=== PATIENT | female | born 1975 | race Caucasian/White ===

== ENCOUNTER 2017-03-05 17:47 | Emergency (ER) | payer MEDICAID ==
[~2017-03-05] VITALS: Ht 154.9 cm; Wt 109.0 kg
[~2017-03-05 17:47] MED LIST: ZOFR4TAB3 SL
[2017-03-05 17:48] VITALS: BP 129/59; PULSE 81; RESP 16; TEMP 98.5; O2SAT 98
[2017-03-05] MEDS ORDERED: TYLETAB34 PO (18:31)
[2017-03-05] MEDS ORDERED: METR-1 PO (18:31)
--- NOTE | 2017-03-05 18:36 | PD ---
HPI Chief Complaint: Oral / Dental Pain or Problem Time Seen by Provider: 18:25 Travel History International Travel<30 days: No Contact w/Intl Traveler<30days: No Traveled to known affect area: No History of Present Illness HPI This patient complains of dental pain. She is worried about infection there. Denies fever. She's been told she will need a root canal there. Symptoms severity is moderate PFSH Past Medical History Anemia: No Arthritis: No Asthma: Yes Autoimmune Disease: No Blood Disorders: No Anxiety: No Depression: Yes Heart Rhythm Problems: No Cancer: No Cardiovascular Problems: No High Cholesterol: No Chemotherapy: No Chest Pain: No Congestive Heart Failure: No COPD: Yes Cerebrovascular Accident: No Diminished Hearing: No Endocrine: No Gastrointestinal Disorders: Yes GERD: Yes Glaucoma: No Genitourinary: Yes Headaches: Yes Hepatitis: No Hiatal Hernia: No Hypertension: No Immune Disorder: No Implanted Vascular Access Dvce: No Kidney Stones: No Musculoskeletal: Yes (RT. HAND/WRIST PAIN NERVE PAIN; CARPAL TUNNEL RT. WRIST/ HAND) Neurologic: Yes Psychiatric: Yes Reproductive: No Respiratory: Yes (pneumonia) Immunizations Current: Yes Migraines: No Myocardial Infarction: No Radiation Therapy: No Renal Failure: No Seizures: No Sickle Cell Disease: No Thyroid Disease: No Ulcer: No Tetanus Vaccination: Unknown Influenza Vaccination: No ?: Not LMP: 2 WEEKS Menopausal: No : 3 Para: 2 Miscarriage: 1 Dilation and Curettage (D&C): Yes Tubal Ligation: Yes Past Surgical History Abdominal Surgery: Yes ( INFECTION REMOVED AROUND SPLEEN) AICD: No Appendectomy: No Arteriovenous Shunt: No Cardiac Surgery: No Section: Yes (X 2) Cholecystectomy: Yes Ear Surgery: No Endocrine Surgery: No Eye Surgery: No Genitourinary Surgery: No Gynecologic Surgery: Yes (TUBAL LIGATION; D/C; X2) Insulin Pump: No Joint Replacement: No Neurologic Surgery: No Oral Surgery: Yes (TONSILLECTOMY) Pacemaker: No Tonsillectomy: Yes Other Surgery: Yes (TRACH AND REVERSAL) Family History Family Myocardial Infarction: Yes (GRANDMOTHER) Social History Alcohol Use: Yes (RARE) Tobacco Use: Yes (VAPOR) Substance Use: No Allergies-Medications (Allergen,Severity, Reaction): Coded Allergies: Seafood (Verified Allergy, Severe, Anaphylaxis, 03/05/17) Penicillin (Verified Allergy, Unknown, 03/05/17) CHILDHOOD ALLERGY Cleocin (Verified Adverse Reaction, Severe, RASH, 03/05/17) Reported Meds & Prescriptions Reported Meds & Active Scripts Active Flagyl (Metronidazole) 500 Mg Tab 500 Mg PO TID Tylenol-Codeine #3 (Acetaminophen-Codeine) 300-30 mg Tab 1 Tab PO Q6HR PRN Review of Systems General / Constitutional: No: Fever HENT: No: Headaches Cardiovascular: No: Chest Pain or Discomfort Physical Exam Narrative NECK: Symmetrical appearance, midline trachea. No mass or crepitus. Thyroid without enlargement, tenderness, or mass. Throat clear TMs normal SKIN: Focused skin assessment reveals no rash or ulcers. Skin is warm and dry. Palpation shows no induration or nodules. Oral cavity: Poor dentition. The last left upper molar is almost completely rotted out. [place] gingiva noted without abscess Data Data Last Documented VS Vital Signs Date Time Temp Pulse Resp B/P Pulse Ox O2 Delivery O2 Flow Rate FiO2 03/05/17 17:48 98.5 81 16 129/59 98 MDM Medical Decision Making Medical Screen Exam Complete: Yes Emergency Medical Condition: Yes Medical Record Reviewed: Yes Differential Diagnosis Dental pain, dental cavity, abscess Narrative Course I have reviewed the patient's electronic medical record. I wrote the patient prescription for Tylenol 3 for pain relief and some Flagyl given her allergies Recommend dental follow-up Diagnosis Primary Impression: Pain, dental Additional Instructions: The patient was advised to follow up with their dental provider . The patient was warned about potential sedation for the medications they will receive on prescription. Med/Other Pt SpecificInfo: Prescription(s) given Scripts Metronidazole (Flagyl)500 Mg Urj079 Mg PO TID #20 TAB Ref 0 Prov:Jagdish Díaz MD 03/05/17 Acetaminophen-Codeine (Tylenol-Codeine #3)300-30 mg Tab1 Tab PO Q6HR PRN (PAIN) #15 TAB Ref 0 Prov:Jagdish Díaz MD 03/05/17 Disposition: 01 DISCHARGE HOME Condition: Stable Jagdish Díaz MD Mar 05, 2017 18:36
== END 2017-03-05 18:55 | disposition home or self-care (01) ==
LOC: PHEFT 17:47
DX: K08.89 Other specified disorders of teeth and supporting structures (principal); Z72.0 Tobacco use; Z87.09 Personal history of other diseases of the respiratory system; Z86.59 Personal history of other mental and behavioral disorders; Z87.19 Personal history of other diseases of the digestive system; Z87.448 Personal history of other diseases of urinary system; Z87.39 Personal history of other diseases of the musculoskeletal system and connective tissue; Z86.69 Personal history of other diseases of the nervous system and sense organs
CPT/HCPCS: 99284

== ENCOUNTER 2017-05-02 19:54 | Emergency (ER) | payer SELFPAY ==
[~2017-05-02] VITALS: Ht 154.9 cm; Wt 110.0 kg
[~2017-05-02 19:54] MED LIST changes: +METR-1 PO; +TYLETAB34 PO; -ZOFR4TAB3 SL
[2017-05-02 20:42] VITALS: BP 106/68; PULSE 85; RESP 16; TEMP 99; O2SAT 99
--- NOTE | 2017-05-02 21:00 | PD ---
HPI . Cough, bilateral ear pain, throat pain 3 weeks Chief Complaint: Cold / Flu Symptoms Time Seen by Provider: 20:47 Travel History International Travel<30 days: No Contact w/Intl Traveler<30days: No Traveled to known affect area: No History of Present Illness HPI 41-year-old female presents to the emergency department for evaluation of cough , throat pain and bilateral ear pain 3 weeks. Patient states she is unsure she has had a fever however she has chills or malaise. Patient denies any abdominal pain, nausea at this time but states she vomited once earlier today. Patient denies any major medical history except for a gastric bypass surgery that became so infected she develops sepsis. Patient states she is taking Tylenol and Motrin for pain and fever. Patient states when she coughs she coughs up a dorsey colored phlegm. PFSH Past Medical History Anemia: No Arthritis: No Asthma: Yes Autoimmune Disease: No Blood Disorders: No Anxiety: No Depression: Yes Heart Rhythm Problems: No Cancer: No Cardiovascular Problems: No High Cholesterol: No Chemotherapy: No Chest Pain: No Congestive Heart Failure: No COPD: Yes Cerebrovascular Accident: No Diminished Hearing: No Endocrine: No Gastrointestinal Disorders: Yes GERD: Yes Glaucoma: No Genitourinary: Yes Headaches: Yes Hepatitis: No Hiatal Hernia: No Hypertension: No Immune Disorder: No Implanted Vascular Access Dvce: No Kidney Stones: No Musculoskeletal: Yes (RT. HAND/WRIST PAIN NERVE PAIN; CARPAL TUNNEL RT. WRIST/ HAND) Neurologic: Yes Psychiatric: Yes Reproductive: No Respiratory: Yes (pneumonia) Immunizations Current: Yes Migraines: No Myocardial Infarction: No Radiation Therapy: No Renal Failure: No Seizures: No Sickle Cell Disease: No Thyroid Disease: No Ulcer: No Menopausal: No : 3 Para: 2 Miscarriage: 1 Dilation and Curettage (D&C): Yes Tubal Ligation: Yes Past Surgical History Abdominal Surgery: Yes ( INFECTION REMOVED AROUND SPLEEN) AICD: No Appendectomy: No Arteriovenous Shunt: No Cardiac Surgery: No Section: Yes (X 2) Cholecystectomy: Yes Ear Surgery: No Endocrine Surgery: No Eye Surgery: No Genitourinary Surgery: No Gynecologic Surgery: Yes (TUBAL LIGATION; D/C; X2) Insulin Pump: No Joint Replacement: No Neurologic Surgery: No Oral Surgery: Yes (TONSILLECTOMY) Pacemaker: No Tonsillectomy: Yes Other Surgery: Yes (TRACH AND REVERSAL) Social History Alcohol Use: Yes (RARE) Tobacco Use: Yes (VAPOR) Substance Use: No Allergies-Medications (Allergen,Severity, Reaction): Coded Allergies: Fish Containing Products (Unverified Allergy, Severe, Anaphylaxis, ) penicillin G (Unverified Allergy, Unknown, 05/02/17) CHILDHOOD ALLERGY clindamycin (Unverified Adverse Reaction, Severe, RASH, 05/02/17) Reported Meds & Prescriptions Reported Meds & Active Scripts Active Ibuprofen 400 Mg Tab 400 Mg PO Q6H PRN Flagyl (Metronidazole) 500 Mg Tab 500 Mg PO TID Tylenol-Codeine #3 (Acetaminophen-Codeine) 300-30 mg Tab 1 Tab PO Q6HR PRN Review of Systems Except as stated in HPI: all other systems reviewed are Neg Physical Exam Narrative GENERAL: Well-nourished, well-developed 41-year-old female patient in no acute distress. Nontoxic appearing. SKIN: Focused skin assessment warm/dry. HEAD: Normocephalic. Atraumatic. EYES: No scleral icterus. No injection or drainage. ENT: Mucosa pink and moist. No erythema or exudates. No uvular edema. No uvular , palatal, or tonsillar deviation. Airway patent. Nasal turbinates appear normal without nasal blood, purulent drainage or septal hematoma. EARS: Bilateral pinnae and external canals appear within normal limits. Bilateral tympanic membranes without erythema, dullness or perforation. NECK: Supple, trachea midline. No JVD or lymphadenopathy. CARDIOVASCULAR: Regular rate and rhythm without murmurs, gallops, or rubs. RESPIRATORY: Breath sounds equal bilaterally. No accessory muscle use. GASTROINTESTINAL: Abdomen soft, non-tender, nondistended. MUSCULOSKELETAL: No cyanosis, or edema. BACK: Nontender without obvious deformity. No CVA tenderness. Data Data Last Documented VS Vital Signs Date Time Temp Pulse Resp B/P (MAP) Pulse Ox O2 Delivery O2 Flow Rate FiO2 05/02/17 21:54 05/02/17 21:00 Room Air 05/02/17 20:42 99.0 85 16 99 Orders Orders Chest, Single Ap (05/02/17 20:54) Ed Discharge Order (05/02/17 21:45) MDM Medical Decision Making Medical Screen Exam Complete: Yes Emergency Medical Condition: Yes Differential Diagnosis Differential diagnoses include but not limited to viral syndrome, URI, pharyngitis Narrative Course 41-year-old female presents emergency department for evaluation of cough, ear pain and throat pain 3 weeks. Patient denies any major medical history except for previous gastric bypass surgery where she developed sepsis. Patient states this pain has been persistent despite alternating Tylenol and Motrin around-the- clock. Patient is unsure if she has had any fevers but confirms chills or malaise. Patient states she has coughing up dorsey phlegm. Chest x-ray ordered and pending. Chest x-ray was negative for any acute findings. Based on patient 's symptoms, clinical presentation, radiological results, vital sign review and physical exam it is not necessary to admit the patient to the hospital or keep the patient in the emergency department for further evaluation. Patient will be discharged home. Diagnosis Primary Impression: Viral syndrome Patient Instructions: General Instructions, Viral Syndrome (ED) Additional Instructions: Please return to emergency department if your symptoms return or worsen. Follow up with your primary care provider. Disposition: 01 DISCHARGE HOME Condition: Stable Roopa Cueto May 02, 2017 21:00
--- NOTE | 2017-05-02 21:31 | RADRPT ---
EXAM DATE/TIME: 05/02/2017 21:13 [facility] COMPARISON: CHEST SINGLE AP, November 24, 2015, 12:15. INDICATIONS : Cough and congestion for 3 weeks. MEDICAL HISTORY : None. SURGICAL HISTORY : Hysterectomy. Cholecystectomy. section.Tubal ligation. Gastric bypass. ENCOUNTER: Initial ACUITY: 3 weeks PAIN SCORE: 0/10 LOCATION: Bilateral chest FINDINGS: A single view of the chest demonstrates the lungs to be symmetrically aerated without evidence of mas s, infiltrate or effusion. The cardiomediastinal contours are unremarkable. Osseous structures are intact. CONCLUSION: No acute disease. No significant change has occurred. Gonzalo Shook MD on May 02, 2017 at 21:29 Board Certified Radiologist. This report was verified electronically.
[2017-05-02] MEDS ORDERED: IBUP400T20 PO (21:44)
== END 2017-05-02 22:05 | disposition home or self-care (01) ==
LOC: PHEFT 19:54
DX: B34.9 Viral infection, unspecified (principal); F32.9 Major depressive disorder, single episode, unspecified; J44.9 Chronic obstructive pulmonary disease, unspecified; K21.9 Gastro-esophageal reflux disease without esophagitis; F17.200 Nicotine dependence, unspecified, uncomplicated; Z88.0 Allergy status to penicillin
CPT/HCPCS: 71010; 99283

== ENCOUNTER 2017-08-01 17:18 | Emergency (ER) | payer MEDICAID ==
[~2017-08-01] VITALS: Ht 154.9 cm; Wt 110.7 kg
[2017-08-01] VITALS (7 sets, daily range): BP systolic 91–133; BP diastolic 50–64; PULSE 72–84; RESP 16–20; TEMP 97.8–98.7; O2SAT 97–99
[2017-08-01 17:53] LABS: BILIRUBIN, URINE NEG (NEG); BLOOD, URINE NEG (NEG); GLUCOSE,URINE NEG (NEG); KETONE, URINE TRACE mg/dL (NEG); NITRITE,URINE NEG (NEG); PH, URINE 5.5 (5.0-8.5); URINE LEUKOCYTE ESTERASE NEG (NEG)
[2017-08-01 18:06] LABS: RBC, URINE 0-3 /hpf (0-3); SQUAMOUS EPITHELIAL CELL URINE 0-5 /hpf (0-5); URINE COLOR YELLOW (YELLW/STRAW); WBC, URINE 0-2 /hpf (0-5)
[2017-08-01] MEDS ORDERED: SODIUM CHLORIDE 0.9% FLUSH 10 ML FLUSH IV FLUSH PRN (19:00)
--- NOTE | 2017-08-01 19:08 | PD ---
HPI Chief Complaint: Flank/Kidney Pain Time Seen by Provider: 18:21 Travel History International Travel<30 days: No Contact w/Intl Traveler<30days: No Traveled to known affect area: No History of Present Illness HPI 41-year-old female with history of kidney stones, gastric bypass surgery in 2011 in [facility], here for evaluation of right flank pain. Patient reports that the symptoms started yesterday. She describes burning sensation in her right flank that radiates around to her right groin. Pain is occasionally sharp/shooting, currently 7 out of 10, sometimes 8 out of 10, constant, associated with nausea but no vomiting. The patient also reports some was bowel movements. She has had a cholecystectomy. No fevers or chills. Last [place]. Was a week ago. No vaginal bleeding or discharge. PFSH Past Medical History Anemia: No Arthritis: No Asthma: Yes Autoimmune Disease: No Blood Disorders: No Anxiety: No Depression: Yes Heart Rhythm Problems: No Cancer: No Cardiovascular Problems: No High Cholesterol: No Chemotherapy: No Chest Pain: No Congestive Heart Failure: No COPD: Yes Cerebrovascular Accident: No Diminished Hearing: No Endocrine: No Gastrointestinal Disorders: Yes GERD: Yes Glaucoma: No Genitourinary: Yes Headaches: Yes Hepatitis: No Hiatal Hernia: No Hypertension: No Immune Disorder: No Implanted Vascular Access Dvce: No Kidney Stones: No Musculoskeletal: Yes (RT. HAND/WRIST PAIN NERVE PAIN; CARPAL TUNNEL RT. WRIST/ HAND) Neurologic: Yes Psychiatric: Yes Reproductive: No Respiratory: Yes (pneumonia) Immunizations Current: Yes Migraines: No Myocardial Infarction: No Radiation Therapy: No Renal Failure: No Seizures: No Sickle Cell Disease: No Thyroid Disease: No Ulcer: No ?: Not LMP: TUBAL Menopausal: No : 3 Para: 2 Miscarriage: 1 Dilation and Curettage (D&C): Yes Tubal Ligation: Yes Past Surgical History Abdominal Surgery: Yes ( INFECTION REMOVED AROUND SPLEEN) AICD: No Appendectomy: No Arteriovenous Shunt: No Cardiac Surgery: No Section: Yes (X 2) Cholecystectomy: Yes Ear Surgery: No Endocrine Surgery: No Eye Surgery: No Genitourinary Surgery: No Gynecologic Surgery: Yes (TUBAL LIGATION; D/C; X2) Insulin Pump: No Joint Replacement: No Neurologic Surgery: No Oral Surgery: Yes (TONSILLECTOMY) Pacemaker: No Tonsillectomy: Yes Other Surgery: Yes (TRACH AND REVERSAL) Family History Family Myocardial Infarction: Yes (GRANDMOTHER) Social History Alcohol Use: Yes (RARE) Tobacco Use: Yes (VAPOR) Substance Use: No Allergies-Medications (Allergen,Severity, Reaction): Coded Allergies: Fish Containing Products (Unverified Allergy, Severe, Anaphylaxis, 08/01/17) penicillin G (Unverified Allergy, Unknown, CHILDHOOD ALLERGY, 08/01/17) clindamycin (Unverified Adverse Reaction, Severe, RASH, 08/01/17) Reported Meds & Prescriptions Reported Meds & Active Scripts Active No Active Prescriptions or Reported Medications Review of Systems Except as stated in HPI: all other systems reviewed are Neg Physical Exam Narrative GENERAL: Well-developed, well-nourished, overweight, no apparent distress. SKIN: Focused skin assessment warm/dry. No rashes. HEAD: Atraumatic. Normocephalic. EYES: Pupils equal and round. No scleral icterus. No injection or drainage. ENT: Mucous membranes pink and moist. NECK: Trachea midline. No JVD. CARDIOVASCULAR: Regular rate and rhythm. No murmur appreciated. RESPIRATORY: No accessory muscle use. Clear to auscultation. Breath sounds equal bilaterally. GASTROINTESTINAL: Abdomen soft, non-tender, nondistended. Normal bowel sounds. MUSCULOSKELETAL: No obvious deformities. No clubbing. No cyanosis. No edema. No CVA tenderness. No midline vertebral step-off or tenderness. NEUROLOGICAL: Awake and alert. No obvious cranial nerve deficits. Motor grossly within normal limits. Normal speech. PSYCHIATRIC: Appropriate mood and affect; insight and judgment normal. Data Data Last Documented VS Vital Signs Date Time Temp Pulse Resp B/P (MAP) Pulse Ox O2 Delivery O2 Flow Rate FiO2 08/01/17 22:16 82 16 117/62 (80) 98 Room Air 08/01/17 17:19 98.7 Orders Orders Urinalysis - C+S If Indicated (08/01/17 17:27) Ed Urine Pregnancytest Poc (08/01/17 17:27) Complete Blood Count With Diff (08/01/17 18:48) Comprehensive Metabolic Panel (08/01/17 18:48) Lipase (08/01/17 18:48) Prothrombin Time / Inr (Pt) (08/01/17 18:48) Act Partial Throm Time (Ptt) (08/01/17 18:48) Ct Abd/Pel W Iv Contrast(Rout) (08/01/17 18:48) Iv Access Insert/Monitor (08/01/17 18:48) Ecg Monitoring (08/01/17 18:48) Oximetry (08/01/17 18:48) Sodium Chloride 0.9% Flush (Ns Flush) (08/01/17 19:00) Ondansetron Inj (Zofran Inj) (08/01/17 19:30) Iohexol 350 Inj (Omnipaque 350 Inj) (08/01/17 20:11) Morphine Inj (Morphine Inj) (08/01/17 21:00) Sodium Chlor 0.9% 1000 Ml Inj (Ns 1000 M (08/01/17 21:45) Labs Laboratory Tests Test 08/01/17 17:45 08/01/17 19:08 Urine Collection Type CLEAN CATCH Urine Color YELLOW Urine Turbidity CLEAR Urine pH 5.5 Urine Specific [place] 1.024 Urine Protein NEG mg/dL Urine Glucose (UA) NEG mg/dL Urine Ketones TRACE mg/dL Urine Occult Blood NEG Urine Nitrite NEG Urine Bilirubin NEG Urine Leukocyte Esterase NEG Urine RBC 0-3 /hpf Urine WBC 0-2 /hpf Urine Squamous Epithelial Cells 0-5 /hpf Microscopic Urinalysis Comment CULT NOT INDICATED Urine Collection Time 17:45 White Blood Count 6.9 TH/MM3 Red Blood Count 4.19 MIL/MM3 Hemoglobin 11.1 GM/DL Hematocrit 35.1 % Mean Corpuscular Volume 83.9 FL Mean Corpuscular Hemoglobin 26.6 PG Mean Corpuscular Hemoglobin Concent 31.7 % Red Cell Distribution Width 14.8 % Platelet Count 296 TH/MM3 Mean Platelet Volume 8.6 FL Neutrophils (%) (Auto) 66.3 % Lymphocytes (%) (Auto) 25.3 % Monocytes (%) (Auto) 6.6 % Eosinophils (%) (Auto) 1.3 % Basophils (%) (Auto) 0.5 % Neutrophils # (Auto) 4.6 TH/MM3 Lymphocytes # (Auto) 1.7 TH/MM3 Monocytes # (Auto) 0.5 TH/MM3 Eosinophils # (Auto) 0.1 TH/MM3 Basophils # (Auto) 0.0 TH/MM3 CBC Comment DIFF FINAL Differential Comment Prothrombin Time 10.2 SEC Prothromb Time International Ratio 1.0 RATIO Activated Partial Thromboplast Time 25.0 SEC Blood Urea Nitrogen 12 MG/DL Creatinine 0.84 MG/DL Random Glucose 100 MG/DL Total Protein 7.2 GM/DL Albumin 3.3 GM/DL Calcium Level 8.9 MG/DL Alkaline Phosphatase 127 U/L Aspartate Amino Transf (AST/SGOT) 70 U/L Alanine Aminotransferase (ALT/SGPT) 58 U/L Total Bilirubin 0.2 MG/DL Sodium Level 141 MEQ/L Potassium Level 4.0 MEQ/L Chloride Level 106 MEQ/L Carbon Dioxide Level 28.9 MEQ/L Anion Gap 6 MEQ/L Estimat Glomerular Filtration Rate 75 ML/MIN Lipase 103 U/L [facility] Medical Decision Making Medical Screen Exam Complete: Yes Emergency Medical Condition: Yes Medical Record Reviewed: Yes Differential Diagnosis Nephrolithiasis, ureterolithiasis, pyelonephritis, UTI, cystitis, musculoskeletal pain, hepatobiliary disease, choledocholithiasis, cholangitis Narrative Course Vital signs show heart rate 84, blood pressure 133/64, pulse ox 99% on room air , oral temp of 98.7F. CBC: WBC 6.9, hemoglobin 11.1, hematocrit 35.1, platelets 295. CMP is remarkable for AST 70, ALT 58, alkaline phosphatase 127, otherwise unremarkable. UA shows trace ketones, otherwise unremarkable, no hematuria, no signs of infection. CT abdomen pelvis: CONCLUSION: 1. No acute abnormality. 2. Previously seen left renal stone no longer present. 3. Cholecystectomy and gastric bypass changes are again noted. Patient was made aware of all findings. She had moderate relief of pain after morphine, however she continues to have right flank pain. I told her I would like to admit her for further pain control as well as evaluation by our bariatric surgeons for possible internal hernia or other cause for her pain that may be related to her gastric bypass. The patient tells me that she does not wish to be admitted at this time. I will give her the information to our bariatric surgeons whom she should follow-up with this week. She understands the risks of being discharged at this time. She was informed on when to return to the emergency department. She verbalizes understanding and agreement with plan. Diagnosis Primary Impression: Right flank pain Referrals: You Murray MD 3 days Bariatric surgeon Harley Chahal MD 3 days Bariatric surgeon [facility] 3 days Primary Care Physician 3 days Additional Instructions: Follow-up with bariatric surgeon Dr. Mccann or Dr. Murray this week. Follow-up with a primary care physician this week. Return to the emergency department for worsening symptoms or any other concerns. Scripts Hydrocodone-Acetaminophen (Hydrocodone-Acetaminophen) 5-325 mg Tab 1 TAB PO Q6H Y for PAIN, #12 TAB 0 Refills Prov: Chap[place]ito Cheung MD 08/01/17 Disposition: 01 DISCHARGE HOME Condition: Stable Chapincito Cheung MD Aug 01, 2017 19:08
[2017-08-01 19:19] LABS: AUTOMATED NEUTROPHIL # 4.6 TH/MM3 (1.8-7.7); BASOPHIL % 0.5 % (0.0-2.0); EOSINOPHIL # 0.1 TH/MM3 (0-0.4); EOSINOPHIL % 1.3 % (0.0-4.0); HEMATOCRIT 35.1 % (35.0-46.0); HEMOGLOBIN 11.1 GM/DL (11.6-15.3); LYMPH % 25.3 % (9.0-44.0); LYMPHOCYTE # 1.7 TH/MM3 (1.0-4.8); MEAN CELL VOLUME 83.9 FL (80.0-100.0); MEAN CORPUSCULAR HEMOGLOBIN 26.6 PG (27.0-34.0); MEAN CORPUSCULAR HGB CONC 31.7 % (32.0-36.0); MEAN PLATELET VOLUME 8.6 FL (7.0-11.0); MONO % 6.6 % (0.0-8.0); MONOCYTE # 0.5 TH/MM3 (0-0.9); NEUT % 66.3 % (16.0-70.0); PLATELET COUNT 296 TH/MM3 (150-450); RED BLOOD COUNT 4.19 MIL/MM3 (4.00-5.30); RED CELL DISTRIBUTION WIDTH 14.8 % (11.6-17.2); WHITE BLOOD COUNT 6.9 TH/MM3 (4.0-11.0)
[2017-08-01 19:25] LABS: CHLORIDE 106 MEQ/L (98-107); SODIUM (NA) 141 MEQ/L (136-145)
[2017-08-01 19:28] LABS: CALCIUM 8.9 MG/DL (8.5-10.1)
[2017-08-01 19:29] LABS: ALBUMIN 3.3 GM/DL (3.4-5.0); BICARBONATE 28.9 MEQ/L (21.0-32.0); BLOOD UREA NITROGEN 12 MG/DL (7-18); GLUCOSE,RANDOM 100 MG/DL (74-106); LIPASE 103 U/L (73-393)
[2017-08-01] MEDS ORDERED: ONDANSETRON HCL 4 MG/2 ML VIAL IV PUSH ONE (19:30)
[2017-08-01 19:31] LABS: ALT (GPT) 58 U/L (10-53); AST (GOT) 70 U/L (15-37); PROTHROMBIN TIME - PATIENT 10.2 SEC (9.8-11.6)
[2017-08-01 19:32] LABS: CREATININE 0.84 MG/DL (0.50-1.00); GLOMERULAR FILTRATION RATE 75 ML/MIN (>89)
[2017-08-01 19:33] LABS: TOTAL BILIRUBIN ADULT 0.2 MG/DL (0.2-1.0); TOTAL PROTEIN 7.2 GM/DL (6.4-8.2)
[2017-08-01 19:34] LABS: ALKALINE PHOSPHATASE 127 U/L (45-117)
[2017-08-01] MEDS ORDERED: IOHEXOL 350 MG/ML 10 ML VIAL (for RAD DIAG) IVCONTRAST ONE (20:11)
--- NOTE | 2017-08-01 20:23 | RADRPT ---
EXAM DATE/TIME: 08/01/2017 19:58 [facility] COMPARISON: CT ABDOMEN & PELVIS W CONTRAST, June 22, 2016, 21:53. INDICATIONS : Right sided flank pain. IV CONTRAST: 95 cc Omnipaque 350 (iohexol) IV ORAL CONTRAST: No oral contrast ingested. RADIATION DOSE: 22.34 CTDIvol (mGy) MEDICAL HISTORY : Gastroesophageal reflux disease. Chronic obstructive pulmonary disease. SURGICAL HISTORY : Cholecystectomy. Tubal ligation.Hysterectomy. ENCOUNTER: Initial ACUITY: 1 day PAIN SCALE: 9/10 LOCATION: Right flank TECHNIQUE: Volumetric scanning of the abdomen and pelvis was performed. Using automated exposure control and ad justment of the mA and/or kV according to patient size, radiation dose was kept as low as reasonably achievable to obtain optimal diagnostic quality images. DICOM format image data is available electro nically for review and comparison. FINDINGS: LOWER LUNGS: The visualized lower lungs are clear. LIVER: Homogeneous density without lesion. There is no dilation of the biliary tree. Cholecystectomy change s are again noted. SPLEEN: Normal size without lesion. PANCREAS: Within normal limits. KIDNEYS: Normal in size and shape. There is no mass, stone or hydronephrosis. The small stone previously seen at the left kidney is no longer present. ADRENAL GLANDS: Within normal limits. VASCULAR: There is no aortic aneurysm. BOWEL/MESENTERY: The stomach, small bowel, and colon demonstrate no acute abnormality. Patient has had previous gastr ic bypass. There is no free intraperitoneal air or fluid. ABDOMINAL WALL: Within normal limits. RETROPERITONEUM: There is no lymphadenopathy. BLADDER: No wall thickening or mass. REPRODUCTIVE: Within normal limits. INGUINAL: There is no lymphadenopathy or hernia. MUSCULOSKELETAL: No acute bony abnormality demonstrated. CONCLUSION: 1. No acute abnormality. 2. Previously seen left renal stone no longer present. 3. Cholecystectomy and gastric bypass changes are again noted. Jordi Estrada MD on August 01, 2017 at 20:19 Board Certified Radiologist. This report was verified electronically.
[2017-08-01] MEDS ORDERED: MORPHINE SULFATE 2 MG/ML INJ IV PUSH ONE (21:00)
[2017-08-01] MEDS ORDERED: SODIUM CHLOR 0.9% 1000 ML INJ 1,000 ML IV ONE (21:45)
[2017-08-01] MEDS ORDERED: HYDR-3516 PO (22:48)
== END 2017-08-01 23:06 | disposition home or self-care (01) ==
LOC: PHED 17:18
DX: R10.9 Unspecified abdominal pain (principal); R10.31 Right lower quadrant pain; R20.8 Other disturbances of skin sensation; R11.0 Nausea; Z72.0 Tobacco use; Z98.84 Bariatric surgery status; Z87.442 Personal history of urinary calculi; Z87.09 Personal history of other diseases of the respiratory system; Z86.59 Personal history of other mental and behavioral disorders; Z87.19 Personal history of other diseases of the digestive system; Z87.39 Personal history of other diseases of the musculoskeletal system and connective tissue; Z86.69 Personal history of other diseases of the nervous system and sense organs
CPT/HCPCS: 74177; 80053; 81001; 83690; 84703; 85025; 85610; 85730; 96361; 96374; 96375; 99285; J2270; J2405; J7030; Q9967

== ENCOUNTER 2017-08-04 17:34 | Inpatient (IN) | payer MEDICAID ==
[~2017-08-04] VITALS: Ht 154.9 cm; Wt 111.2 kg
[~2017-08-04 17:34] MED LIST changes: +HYDR-3516 PO
[2017-08-04 17:45] VITALS: BP 105/62; PULSE 89; RESP 17; TEMP 98.7; O2SAT 100
[2017-08-04] MEDS ORDERED: ONDANSETRON HCL 4 MG/2 ML VIAL IV PUSH ONE (18:00)
--- NOTE | 2017-08-04 18:11 | PD ---
HPI Chief Complaint: Flank/Kidney Pain Time Seen by Provider: 17:49 Travel History International Travel<30 days: No Contact w/Intl Traveler<30days: No Traveled to known affect area: No History of Present Illness HPI 41-year-old female presents with continued right sided abdominal pain that has spread into her abdomen. She states she's also having intermittent nonbloody emesis. She denies any other concurrent complaints. She confirms she had gastric bypass surgery in 2011 with immediate postop complication needing transfer to [facility] with infection around her spleen. She states she followed for a year without surgeon but hasn't followed up with anyone since. Quality pain is crampy. Severity is moderate. She denies specific modifying factors. She denies specific migration of the pain. PFSH Past Medical History Anemia: No Arthritis: No Asthma: Yes Autoimmune Disease: No Blood Disorders: No Anxiety: No Depression: Yes Heart Rhythm Problems: No Cancer: No Cardiovascular Problems: No High Cholesterol: No Chemotherapy: No Chest Pain: No Congestive Heart Failure: No COPD: Yes Cerebrovascular Accident: No Diminished Hearing: No Endocrine: No Gastrointestinal Disorders: Yes GERD: Yes Glaucoma: No Genitourinary: Yes Headaches: Yes Hepatitis: No Hiatal Hernia: No Hypertension: No Immune Disorder: No Implanted Vascular Access Dvce: No Kidney Stones: No Musculoskeletal: Yes (RT. HAND/WRIST PAIN NERVE PAIN; CARPAL TUNNEL RT. WRIST/ HAND) Neurologic: Yes Psychiatric: Yes Reproductive: No Respiratory: Yes (COPD) Immunizations Current: Yes Migraines: No Myocardial Infarction: No Radiation Therapy: No Renal Failure: No Seizures: No Sickle Cell Disease: No Thyroid Disease: No Ulcer: No ?: Not Menopausal: No : 3 Para: 2 Miscarriage: 1 Dilation and Curettage (D&C): Yes Tubal Ligation: Yes Past Surgical History Abdominal Surgery: Yes ( INFECTION REMOVED AROUND SPLEEN) AICD: No Appendectomy: No Arteriovenous Shunt: No Cardiac Surgery: No Section: Yes (X 2) Cholecystectomy: Yes Ear Surgery: No Endocrine Surgery: No Eye Surgery: No Genitourinary Surgery: No Gynecologic Surgery: Yes (TUBAL LIGATION; D/C; X2) Insulin Pump: No Joint Replacement: No Neurologic Surgery: No Oral Surgery: Yes (TONSILLECTOMY) Pacemaker: No Tonsillectomy: Yes Other Surgery: Yes (TRACH AND REVERSAL) Social History Alcohol Use: Yes (RARE) Tobacco Use: Yes (VAPOR) Substance Use: No Allergies-Medications (Allergen,Severity, Reaction): Coded Allergies: Fish Containing Products (Verified Allergy, Severe, Anaphylaxis, 08/04/17) shellfish derived (Verified Allergy, Severe, Anaphylaxis, 08/04/17) shrimp (Verified Allergy, Severe, Anaphylaxis, 08/04/17) penicillin G (Verified Allergy, Unknown, CHILDHOOD ALLERGY, 08/04/17) clindamycin (Verified Adverse Reaction, Severe, RASH, 08/04/17) Reported Meds & Prescriptions Reported Meds & Active Scripts Active Hydrocodone-Acetaminophen 5-325 mg Tab 1 Tab PO Q6H PRN Review of Systems Except as stated in HPI: all other systems reviewed are Neg Physical Exam Narrative GENERAL: Well-nourished, well-developed patient. SKIN: Warm and dry. HEAD: Normocephalic and atraumatic. EYES: No injection or drainage. ENT: No nasal drainage noted. NECK: Supple, trachea midline. CARDIOVASCULAR: Regular rate and rhythm RESPIRATORY: No increased effort. No accessory muscle use. GASTROINTESTINAL: Abdomen soft, mild diffusely tender, nondistended. No rebound NEUROLOGICAL: Awake and alert. Motor and sensory grossly within normal limits. Normal speech. Data Data Last Documented VS Vital Signs Date Time Temp Pulse Resp B/P (MAP) Pulse Ox O2 Delivery O2 Flow Rate FiO2 08/04/17 18:20 16 96 Room Air 08/04/17 17:45 98.7 89 105/62 (76) Orders Orders Complete Blood Count With Diff (08/04/17 17:50) Comprehensive Metabolic Panel (08/04/17 17:50) Urinalysis - C+S If Indicated (08/04/17 17:50) Lipase (08/04/17 17:50) Iv Access Insert/Monitor (08/04/17 17:50) Oximetry (08/04/17 17:50) Ondansetron Inj (Zofran Inj) (08/04/17 18:00) Upper Gi Series With Kub Sand Technologist (08/04/17 ) Admit Order (Ed Use Only) (08/04/17 18:50) Labs Laboratory Tests Test 08/04/17 18:10 08/04/17 18:20 Urine Collection Type CLEAN CATCH Urine Color YELLOW Urine Turbidity CLEAR Urine pH 8.0 Urine Specific [place] 1.019 Urine Protein NEG mg/dL Urine Glucose (UA) NEG mg/dL Urine Ketones NEG mg/dL Urine Occult Blood NEG Urine Nitrite NEG Urine Bilirubin NEG Urine Leukocyte Esterase NEG Urine WBC 0-2 /hpf Urine Squamous Epithelial Cells 3-5 /hpf Urine Mucus RARE /lpf Microscopic Urinalysis Comment CULT NOT INDICATED White Blood Count 9.9 TH/MM3 Red Blood Count 4.24 MIL/MM3 Hemoglobin 10.9 GM/DL Hematocrit 35.4 % Mean Corpuscular Volume 83.6 FL Mean Corpuscular Hemoglobin 25.8 PG Mean Corpuscular Hemoglobin Concent 30.9 % Red Cell Distribution Width 14.5 % Platelet Count 300 TH/MM3 Mean Platelet Volume 9.4 FL Neutrophils (%) (Auto) 65.3 % Lymphocytes (%) (Auto) 24.9 % Monocytes (%) (Auto) 8.0 % Eosinophils (%) (Auto) 1.1 % Basophils (%) (Auto) 0.7 % Neutrophils # (Auto) 6.4 TH/MM3 Lymphocytes # (Auto) 2.5 TH/MM3 Monocytes # (Auto) 0.8 TH/MM3 Eosinophils # (Auto) 0.1 TH/MM3 Basophils # (Auto) 0.1 TH/MM3 CBC Comment DIFF FINAL Differential Comment Blood Urea Nitrogen 9 MG/DL Creatinine 0.74 MG/DL Random Glucose 76 MG/DL Total Protein 7.2 GM/DL Albumin 3.4 GM/DL Calcium Level 8.4 MG/DL Alkaline Phosphatase 124 U/L Aspartate Amino Transf (AST/SGOT) 17 U/L Alanine Aminotransferase (ALT/SGPT) 53 U/L Total Bilirubin 0.2 MG/DL Sodium Level 138 MEQ/L Potassium Level 3.8 MEQ/L Chloride Level 107 MEQ/L Carbon Dioxide Level 24.7 MEQ/L Anion Gap 6 MEQ/L Estimat Glomerular Filtration Rate 86 ML/MIN Lipase 106 U/L [facility] Medical Decision Making Medical Screen Exam Complete: Yes Emergency Medical Condition: Yes Medical Record Reviewed: Yes (past history confirmed, recent visit reviewed with normal blood work and CT) Interpretation(s) CBC & BMP Diagram 08/04/17 18:20 Total Protein 7.2, Albumin 3.4, Calcium Level 8.4 L, Alkaline Phosphatase 124 H , Aspartate Amino Transf (AST/SGOT) 17, Alanine Aminotransferase (ALT/SGPT) 53, Total Bilirubin 0.2 Differential Diagnosis Internal hernia, gastroenteritis, dumping syndrome, renal failure Narrative Course Will check blood work and discuss with bariatric surgeon Patient updated and agrees to observation Physician Communication Physician Communication Dr. Michael requests upper GI with bypass protocol and callback dr michael agrees to admit at [facility] for upper gi and observation Diagnosis Primary Impression: History of Brigitte-en-Y gastric bypass Additional Impression: Abdominal pain Qualified Codes: R10.9 - Unspecified abdominal pain Admitting Information Admitting Physician Requests: Observation Laura Lopez MD Aug 04, 2017 18:11
[2017-08-04 18:20] VITALS: RESP 16; O2SAT 96
[2017-08-04 18:37] LABS: AUTOMATED NEUTROPHIL # 6.4 TH/MM3 (1.8-7.7); BASOPHIL # 0.1 TH/MM3 (0-0.2); BASOPHIL % 0.7 % (0.0-2.0); EOSINOPHIL # 0.1 TH/MM3 (0-0.4); EOSINOPHIL % 1.1 % (0.0-4.0); HEMATOCRIT 35.4 % (35.0-46.0); HEMOGLOBIN 10.9 GM/DL (11.6-15.3); LYMPH % 24.9 % (9.0-44.0); LYMPHOCYTE # 2.5 TH/MM3 (1.0-4.8); MEAN CELL VOLUME 83.6 FL (80.0-100.0); MEAN CORPUSCULAR HEMOGLOBIN 25.8 PG (27.0-34.0); MEAN CORPUSCULAR HGB CONC 30.9 % (32.0-36.0); MEAN PLATELET VOLUME 9.4 FL (7.0-11.0); MONOCYTE # 0.8 TH/MM3 (0-0.9); NEUT % 65.3 % (16.0-70.0); PLATELET COUNT 300 TH/MM3 (150-450); RED BLOOD COUNT 4.24 MIL/MM3 (4.00-5.30); RED CELL DISTRIBUTION WIDTH 14.5 % (11.6-17.2); WHITE BLOOD COUNT 9.9 TH/MM3 (4.0-11.0)
[2017-08-04 18:43] LABS: BILIRUBIN, URINE NEG (NEG); BLOOD, URINE NEG (NEG); GLUCOSE,URINE NEG (NEG); KETONE, URINE NEG (NEG); NITRITE,URINE NEG (NEG); URINE LEUKOCYTE ESTERASE NEG (NEG)
[2017-08-04 18:47] LABS: CHLORIDE 107 MEQ/L (98-107); SODIUM (NA) 138 MEQ/L (136-145)
[2017-08-04 18:49] LABS: URINE COLOR YELLOW (YELLW/STRAW)
[2017-08-04 18:50] LABS: CALCIUM 8.4 MG/DL (8.5-10.1)
[2017-08-04 18:50] LABS: MUCUS URINE RARE /lpf (OCC); WBC, URINE 0-2 /hpf (0-5)
[2017-08-04 18:51] LABS: ALBUMIN 3.4 GM/DL (3.4-5.0); BICARBONATE 24.7 MEQ/L (21.0-32.0); BLOOD UREA NITROGEN 9 MG/DL (7-18); GLUCOSE,RANDOM 76 MG/DL (74-106); LIPASE 106 U/L (73-393)
[2017-08-04 18:53] LABS: ALT (GPT) 53 U/L (10-53); AST (GOT) 17 U/L (15-37)
[2017-08-04 18:54] LABS: CREATININE 0.74 MG/DL (0.50-1.00); GLOMERULAR FILTRATION RATE 86 ML/MIN (>89)
[2017-08-04 18:55] LABS: TOTAL BILIRUBIN ADULT 0.2 MG/DL (0.2-1.0); TOTAL PROTEIN 7.2 GM/DL (6.4-8.2)
[2017-08-04 18:56] LABS: ALKALINE PHOSPHATASE 124 U/L (45-117)
[2017-08-04 18:58] VITALS: BP 105/77; PULSE 78; RESP 18; O2SAT 98
[2017-08-04 20:47] VITALS: BP 108/72; PULSE 78; RESP 18; O2SAT 98
[2017-08-04] MEDS ORDERED: ACETAMINOPHEN 500 MG CPLT PO ONE (21:00)
[2017-08-04 22:22] VITALS: BP 106/72; PULSE 74; RESP 18; O2SAT 98
[2017-08-04] MEDS: ONDANSETRON HCL 4 MG/2 ML VIAL IV PUSH PRN (22:57)
[2017-08-04] MEDS: MORPHINE SULFATE 2 MG/ML INJ IV PRN (22:57)
[2017-08-04] MEDS: SODIUM CHLORIDE 0.9% FLUSH 10 ML FLUSH IV FLUSH SCH (23:00)
[2017-08-05 00:15] VITALS: BP 110/70; PULSE 74; RESP 18; O2SAT 97
[2017-08-05] MEDS: SODIUM CHLOR 0.9% 1000 ML INJ 1,000 ML IV SCH ×4 (00:17→22:48)
[2017-08-05 02:32] VITALS: BP 111/72; PULSE 72; RESP 18; O2SAT 98
[2017-08-05 03:39] VITALS: BP 101/50; PULSE 66; RESP 18; TEMP 98.7; O2SAT 98
[2017-08-05] MEDS: ONDANSETRON HCL 4 MG/2 ML VIAL IV PUSH PRN ×2 (07:24→22:48)
[2017-08-05] MEDS: MORPHINE SULFATE 2 MG/ML INJ IV PRN (07:25)
[2017-08-05] MEDS: SODIUM CHLORIDE 0.9% FLUSH 10 ML FLUSH IV FLUSH PRN (07:25)
[2017-08-05 07:45] VITALS: BP 101/58; PULSE 65; RESP 18; TEMP 96.1; O2SAT 97
--- NOTE | 2017-08-05 08:53 | RADRPT ---
EXAM DATE/TIME: 08/05/2017 07:53 [place] COMPARISON: No previous studies available for comparison. INDICATIONS : Upper abdominal pain, nausea, vomiting for 1 week FLUORO TIME: 1.0 minutes IMAGE COUNT: 15 CONTRAST: 1. Liquid E-Z Paque Barium Sulfate (60% w/v, 41% w.w) MEDICAL HISTORY : Gastroesophageal reflux disease. Chronic obstructive pulmonary disease. SURGICAL HISTORY : Gastric bypass. Cholecystectomy. Tubal ligation.Hysterectomy ENCOUNTER: Initial ACUITY: 1 week PAIN SCORE: 5/10 LOCATION: Bilateral upper quadrant FINDINGS: Preliminary film shows surgical clips in the right upper quadrant.. Patient swallowed thin barium suspension. Multiple spot images and overhead radiographs were obtained of the abdomen. There is evidence of prior gastric bypass procedure. Contrast passes without delay into and out of th e gastric remnant. No evidence of focal narrowing or dilatation. No evidence of contrast leak. Proxim al small bowel is within normal limits. CONCLUSION: Upper GI series within normal limits status post gastric bypass. Tulio Ramires MD on August 05, 2017 at 8:48 Board Certified Radiologist. This report was verified electronically.
[2017-08-05] MEDS: SODIUM CHLORIDE 0.9% FLUSH 10 ML FLUSH IV FLUSH SCH ×2 (09:48→22:48)
[2017-08-05] MEDS: PANTOPRAZOLE SODIUM 40 MG VIAL IV PUSH SCH (09:48)
--- NOTE | 2017-08-05 10:53 | MH ---
cc: JOSEPH PAREDES MD DATE OF ADMISSION: 08/04/2017 PREOPERATIVE DIAGNOSIS Abdominal pain. History of gastric bypass. HISTORY OF PRESENT ILLNESS: The patient is a 41 year-old female with history of gastric bypass. HISTORY OF PRESENT ILLNESS: The patient is a 41-year-old female history of gastric bypass done in 2011 in [place]. The has somewhat of a complex medical-surgical history, including issue with a splenic abscess and abdominal abscess and warranted revision in [facility] with drainage. At this time the patient did have a gastrostomy tube as well. 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 The patient did recover fully from this but presented with acute onset of abdominal pain. She has had some chronic ongoing abdominal pain but recently in the past week he has developed centralized abdominal pain 8/10, the score is currently a 4/10. She has had multiple episodes of nausea and vomiting which has been totally reveiwed, because she says she has had several issues of nausea, vomiting and chronically since her bypass surgery. She does note some also recent bloating intermittently. She came to the emergency department [address] scan with the essentially normal findings and no evidence of overt obstruction, she was sent home but returned due to recurrence of abdominal pain and persistence. Surgery was consulted for further evaluation. On my exam the patient is resting a little bit more comfortably. She did receive some IV pain control and some fluids but states pain is significant. She also has been in the emergency department before with complaints of pain specifically right lower quadrant pain which again has been somewhat chronic in nature, there is some history of sciatica with the radiation from spine down the leg. She was given Robaxin with some improvement. She also has history of right-sided kidney stones for which 8 months ago she was in [place] and given medication to pass the Kidney stone. She states improvement from this but she still had some residual pain. She does state that she initially weighed over 300 pounds, lost down to approximate 200 pounds, is currently around 250 pounds with a BMI of 45.9. She does state taking multivitamin but is not currently taking her B12 shots. However her full bariatric vitamins she is. She has failed to be completely compliant and follow up with bariatric surgeons over the past couple of years. She further denies smoking but does use a vape, occasional EtOH. He denies any nonsteroidal antiinflammatory drug use, and states that she has had several days of diarrhea followed by constipation for the last 2 days. She has been passing flatus. PAST MEDICAL HISTORY 1. Morbid obesity 2. COPD 3. Reflux 4. Asthma. PAST SURGICAL HISTORY 1. Cholecystectomy 2. Gastric bypass 3. Tracheostomy 4. Diagnostic laparoscopy 5. Drain placements. 6. Prolonged hospital course following gastric bypass. MEDICATIONS: See electronic medical record. ALLERGIES CLINDAMYCIN PENICILLIN SHELLFISH SHRIMP FISH SOCIAL HISTORY: Vape, ethyl alcohol occasional denies IVDA. FAMILY HISTORY Denies diabetes, hypertension. REVIEW OF SYSTEMS GENERAL: Denies eye pain. Denies swelling or panel excise current cough or wheeze. HEART: Denies palpitations, chest pain. ABDOMEN: Complains of nausea, vomiting, abdominal pain. : Denies dysuria, hematuria. ENDOCRINE: Denies polyuria, polydipsia. INTEGUMENT Denies any masses or lesions. PSYCHIATRIC: Psych denies change in sensorium. PHYSICAL EXAMINATION+ General: The patient no acute distress. VITAL SIGNS: Temperature 98.7, pulse 66, respirations 18, blood pressure 101/50, saturation 98%. HEAD, EYES, EARS, NOSE, AND THROAT: Pupils equal round reactive. NECK: Supple. Trachea midline. LUNGS: Clear to auscultation bilateral expansion. HEART: S1, S2, regular. ABDOMEN: Soft, mild tenderness to palpation central minimal right lower quadrant pain. No rebound or guarding. Healed surgical scars. EXTREMITIES: Warm, well-perfused. NEUROLOGIC: 5/5 motor all extremities. GCS of 15. PSYCHIATRIC: Appropriate mood appropriate judgment. BACK: Normal curvature. LABORATORY/DIAGNOSTICS White blood count 29, hemoglobin 10.9, hematocrit 35.4, platelets 300. Sodium 138, potassium 3.8, chloride 107, BUN 9, creatinine 0.7, AST 17, ALT 53, alkaline phos 124. CT reviewed by myself showing thickened gastric bypass minimal air, remnant stomach, no significant dilation obstruction or further pathology. ASSESSMENT The patient is a 41-year-old female who presents with history of morbid obesity, history of gastric bypass, currently nausea, vomiting, abdominal pain. PLAN A full clinical radiologic laboratory workup the patient above-named issues including abdominal pain. At this point being somewhat nonspecific, my concern would be for potential intussusception however this is relatively unlikely also concern for possible internal hernia, however not fully specific symptoms to this. We will obtain upper GI series to further evaluate the gastric pouch and the jejunojejunostomy for patency or twisting. We will keep the patient n.p.o. until further studies come back IV pain control, nausea medications and follow the patient closely. MD GO Hernandez/maggy /9:24 AM /9:46 AM
[2017-08-05] MEDS: oxyCODONE/ACETAMINOPHEN 5 MG/325 MG TAB PO PRN ×2 (15:52→22:47)
[2017-08-05 20:00] VITALS: BP 92/52; PULSE 79; RESP 20; TEMP 96.3; O2SAT 95
[2017-08-06] VITALS (8 sets, daily range): BP systolic 93–161; BP diastolic 52–70; PULSE 60–74; RESP 18–20; TEMP 96.6–98.7; O2SAT 96–99
[2017-08-06] MEDS ORDERED: ACETAMIN 325 MG/BUTALBITAL 50 MG/CAFFEINE 40 MG TAB PO ONE (05:45)
[2017-08-06] MEDS: SODIUM CHLOR 0.9% 1000 ML INJ 1,000 ML IV SCH (06:12)
[2017-08-06] MEDS: PANTOPRAZOLE SODIUM 40 MG VIAL IV PUSH SCH (09:00)
[2017-08-06] MEDS: SODIUM CHLORIDE 0.9% FLUSH 10 ML FLUSH IV FLUSH SCH (09:00)
--- NOTE | 2017-08-06 09:05 | HHI.PR ---
cc: You Murray MD Subjective Subjective Notes episodes of pain with liquids last night, dry heaves, Objective Vitals/I&O Vital Signs Date Time Temp Pulse Resp B/P (MAP) Pulse Ox O2 Delivery O2 Flow Rate FiO2 08/06/17 04:40 96.9 68 20 93/53 (66) 97 08/05/17 02:32 Room Air Abdomen: Other (soft mild ttp umbilical, epigastric) A/P Assessment and Plan hx of gastric bypass, complex post op course, development of recurrent pain and distension PLAN Ok for liquid diet will plan for egd and dx lap tomorrow discussed with patient consult medicine for You Bautista MD Aug 06, 2017 09:05
[2017-08-06 12:52] LABS: AUTOMATED NEUTROPHIL # 3.6 TH/MM3 (1.8-7.7); BASOPHIL # 0.1 TH/MM3 (0-0.2); EOSINOPHIL # 0.1 TH/MM3 (0-0.4); EOSINOPHIL % 1.6 % (0.0-4.0); HEMATOCRIT 35.7 % (35.0-46.0); HEMOGLOBIN 11.6 GM/DL (11.6-15.3); LYMPH % 26.7 % (9.0-44.0); LYMPHOCYTE # 1.5 TH/MM3 (1.0-4.8); MEAN CELL VOLUME 84.5 FL (80.0-100.0); MEAN CORPUSCULAR HEMOGLOBIN 27.4 PG (27.0-34.0); MEAN CORPUSCULAR HGB CONC 32.5 % (32.0-36.0); MEAN PLATELET VOLUME 9.6 FL (7.0-11.0); MONOCYTE # 0.5 TH/MM3 (0-0.9); NEUT % 62.7 % (16.0-70.0); PLATELET COUNT 268 TH/MM3 (150-450); RED BLOOD COUNT 4.22 MIL/MM3 (4.00-5.30); WHITE BLOOD COUNT 5.7 TH/MM3 (4.0-11.0)
[2017-08-06 13:09] LABS: BICARBONATE 23.9 MEQ/L (21.0-32.0); CALCIUM 8.4 MG/DL (8.5-10.1); CREATININE 0.72 MG/DL (0.50-1.00)
[2017-08-06] MEDS ORDERED: ACETAMIN 325 MG/BUTALBITAL 50 MG/CAFFEINE 40 MG TAB PO PRN (14:00)
[2017-08-06] MEDS: ONDANSETRON HCL 4 MG/2 ML VIAL IV PUSH PRN (14:40)
--- NOTE | 2017-08-06 15:11 | PD.CONS ---
[facility] By Dr. Murray Reason for Consult Medical Management Primary Care Physician No Primary Care Physician Diagnoses: History of Present Illness 41-year-old female with a history of gastric bypass, iron deficiency anemia, COPD, GERD and morbid obesity admitted to the hospital for evaluation of recurrent abdominal pain with associated nausea/vomiting. The patient reports the pain again on Monday as right-sided flank pain which she initially thought was kidney stones. She states that the pain then radiated to the epigastric area and was associated with gas/bloating as well as nausea/vomiting. She denies any fever/chills. CT of the abdomen/pelvis was negative for acute process. Upper GI series within normal limits. She is scheduled for an EGD and diagnostic laparoscopy tomorrow. The patient has been borderline hypotensive since her arrival with blood pressures in the 90s/50s. She states she was previously worked up for this by her PCP who told her she was dehydrated. The patient is also concerned about a rash in the right antecubital area where her previous IV was. Review of Systems Denies fever or chills Denies blurry vision, otorrhea, rhinorrhea Denies sore throat and cough No chest pain, palpitations, shortness of breath Positive abdominal pain Episodes of diarrhea earlier in the week, followed by constipation. Positive nausea/vomiting Denies muscle pain/weakness Right antecubital rash Past Family Social History Allergies: Coded Allergies: Fish Containing Products (Verified Allergy, Severe, Anaphylaxis, 08/04/17) shellfish derived (Verified Allergy, Severe, Anaphylaxis, 08/04/17) shrimp (Verified Allergy, Severe, Anaphylaxis, 08/04/17) penicillin G (Verified Allergy, Unknown, CHILDHOOD ALLERGY, 08/04/17) clindamycin (Verified Adverse Reaction, Severe, RASH, 08/04/17) Past Medical History Iron deficiency anemia Morbid obesity COPD GERD Past Surgical History Cholecystectomy Gastric bypass Tracheostomy Diagnostic laparoscopic Drain placements Reported Medications Reported Meds & Active Scripts Active Hydrocodone-Acetaminophen 5-325 mg Tab 1 Tab PO Q6H PRN Family History Father with cirrhosis. No family history of DM/CAD. Social History Quit smoking in 2011. Currently vapes. Occasional alcohol. Denies illicit drugs. Physical Exam Vital Signs Vital Signs Date Time Temp Pulse Resp B/P (MAP) Pulse Ox O2 Delivery O2 Flow Rate FiO2 1/14/18 12:38 97.9 60 20 117/70 (86) 96 08/06/17 09:05 98.7 62 20 93/52 (66) 98 08/06/17 04:40 96.9 68 20 93/53 (66) 97 08/06/17 00:00 96.6 72 20 94/55 (68) 96 08/05/17 20:00 96.3 79 20 92/52 (65) 95 Physical Exam GENERAL: Morbidly obese female sitting up in bed SKIN: Minimal erythema in the right antecubital fossa HEAD: Atraumatic. Normocephalic. No temporal or scalp tenderness. EYES: Pupils equal round and reactive. Extraocular motions intact. No scleral icterus. No injection or drainage. ENT: Nose without bleeding, purulent drainage or septal hematoma. Throat without erythema, tonsillar hypertrophy or exudate. Uvula midline. Airway patent. NECK: Trachea midline. No JVD or lymphadenopathy. Supple, nontender, no meningeal signs. CARDIOVASCULAR: Regular rate and rhythm without murmurs, gallops, or rubs. RESPIRATORY: Clear to auscultation. Breath sounds equal bilaterally. No wheezes , rales, or rhonchi. GASTROINTESTINAL: Abdomen soft, nondistended. Tender to palpation in the epigastric area. MUSCULOSKELETAL: Extremities without clubbing, cyanosis, or edema. No joint tenderness, effusion, or edema noted. No calf tenderness. NEUROLOGICAL: Awake and alert. Cranial nerves II through XII intact. Motor and sensory grossly within normal limits. Normal speech. Laboratory Laboratory Tests Test 08/06/17 12:20 White Blood Count 5.7 Red Blood Count 4.22 Hemoglobin 11.6 Hematocrit 35.7 Mean Corpuscular Volume 84.5 Mean Corpuscular Hemoglobin 27.4 Mean Corpuscular Hemoglobin Concent 32.5 Red Cell Distribution Width 15.0 Platelet Count 268 Mean Platelet Volume 9.6 Neutrophils (%) (Auto) 62.7 Lymphocytes (%) (Auto) 26.7 Monocytes (%) (Auto) 8.0 Eosinophils (%) (Auto) 1.6 Basophils (%) (Auto) 1.0 Neutrophils # (Auto) 3.6 Lymphocytes # (Auto) 1.5 Monocytes # (Auto) 0.5 Eosinophils # (Auto) 0.1 Basophils # (Auto) 0.1 CBC Comment DIFF FINAL Differential Comment Blood Urea Nitrogen 6 Creatinine 0.72 Random Glucose 86 Calcium Level 8.4 Sodium Level 140 Potassium Level 4.0 Chloride Level 110 Carbon Dioxide Level 23.9 Anion Gap 6 Estimat Glomerular Filtration Rate 89 Result Diagram: 08/06/17 1220 08/06/17 1220 Assessment and Plan Assessment and Plan Assessment/plan: 1. Abdominal pain/nausea vomiting/status post gastric bypass Patient with multiple complications following her gastric bypass including splenic abscess and abdominal abscess that required revision and drainage at [facility] Abdominal CT and upper GI series within normal limits Management per surgery Plan for EGD and exploratory laparoscopic tomorrow 2. Hypotension Blood pressures range from the 90s to 100s systolic and in the 50s diastolic This appears to be baseline for the patient per medical records review Orthostatic vital signs pending Labs are not consistent with dehydration Monitor 3. Anemia Patient reports history of iron deficiency anemia however is noncompliant with her iron Currently normocytic with H&H of 11.6/35.7 Monitor 4. Rash Likely secondary from tape from previous IV Benadryl 5. GERD Continue Protonix 6. COPD Patient satting 99% on room air Monitor respiratory status Not on any home medications Kate Fisher MD Aug 06, 2017 15:11
[2017-08-06] MEDS: oxyCODONE/ACETAMINOPHEN 5 MG/325 MG TAB PO PRN (19:43)
[2017-08-07] VITALS (13 sets, daily range): BP systolic 73–111; BP diastolic 48–59; PULSE 65–98; RESP 16–20; TEMP 97.9–98.6; O2SAT 93–98
[2017-08-07] MEDS: diphenhydrAMINE HCL 25 MG CAP PO PRN ×2 (00:06→21:30)
[2017-08-07] MEDS: ONDANSETRON HCL 4 MG/2 ML VIAL IV PUSH PRN ×3 (00:07→23:53)
[2017-08-07] MEDS: oxyCODONE/ACETAMINOPHEN 5 MG/325 MG TAB PO PRN ×3 (00:07→20:02)
[2017-08-07] MEDS: SODIUM CHLORIDE 0.9% FLUSH 10 ML FLUSH IV FLUSH SCH ×3 (00:08→20:03)
[2017-08-07] MEDS ORDERED: METOPROLOL TARTRATE 25 MG TAB PO PRN (02:30)
[2017-08-07] MEDS ORDERED: LACTATED RINGER'S 1000 ML IV PRN (02:30)
[2017-08-07] MEDS ORDERED: SODIUM CHLORID 0.9% 500 ML IV PRN (02:30)
[2017-08-07] MEDS ORDERED: CHLORHEXIDINE GLUCONATE 2 % 1 PACK (2 CLOTHS) TOPICAL PRN (02:30)
[2017-08-07] MEDS ORDERED: INSULIN HUMAN REGULAR 1,000 UNITS/10 ML VIAL SQ PRN (02:30)
[2017-08-07] MEDS ORDERED: POVIDONE IODINE 5% (ANTISEPSIS KIT) 4 APPLICATIONS EACH NARE PRN (02:30)
[2017-08-07] MEDS: SODIUM CHLOR 0.9% 1000 ML INJ 1,000 ML IV SCH ×3 (06:57→14:01)
[2017-08-07] MEDS: PANTOPRAZOLE SODIUM 40 MG VIAL IV PUSH SCH (08:31)
[2017-08-07] MEDS ORDERED: BUPIVACAINE/EPINEPHRINE 0.25% 50 ML VIAL ONE (08:53)
[2017-08-07] MEDS ORDERED: VANCOMYCIN HCL 1000 MG VIAL ONE (09:07)
[2017-08-07] MEDS ORDERED: GLYCOPYRROLATE 1 MG/5 ML SYRINGE IV PUSH ONE (12:00)
[2017-08-07] MEDS ORDERED: LIDOCAINE HCL 1% PF 5 ML SYRINGE OTHER ONE (12:00)
[2017-08-07] MEDS ORDERED: ONDANSETRON HCL 4 MG/2 ML VIAL IV ONE (12:00)
[2017-08-07] MEDS ORDERED: SUCCINYLCHOLINE CHLORIDE 100 MG/5 ML SYRINGE IV PUSH ONE (12:00)
[2017-08-07] MEDS ORDERED: ROCURONIUM INJ 50 MG/5 ML SYRINGE IV PUSH ONE (12:00)
[2017-08-07] MEDS ORDERED: NORMOSOL R INJ 1,000 ML IV ONE (12:00)
[2017-08-07] MEDS ORDERED: NEOSTIGMINE 5 MG/5 ML SYRINGE IV PUSH ONE (12:00)
[2017-08-07] MEDS ORDERED: PROPOFOL 200 MG/20 ML AMP IV ONE (12:00)
--- NOTE | 2017-08-07 12:05 | HHI.PR ---
Subjective Remarks Going for surgery. Less abd pain after she received pain meds. No fever or chills. no n/v/d/c. Objective Vitals Vital Signs Date Time Temp Pulse Resp B/P (MAP) Pulse Ox O2 Delivery O2 Flow Rate FiO2 08/07/17 07:31 98.0 67 20 102/55 (71) 96 97/48 (64) 98/52 (67) 08/07/17 03:19 98.1 65 18 73/49 (57) 98 08/06/17 23:27 98.1 74 18 107/55 (72) 97 08/06/17 19:53 98.1 08/06/17 19:00 98.3 18 105/62 (76) 99 101/60 (74) 100/58 (72) 08/06/17 12:38 97.9 60 20 117/70 (86) 96 I/O 08/06/17 08/06/17 08/06/17 08/07/17 08/07/17 08/07/17 07:00 15:00 23:00 07:00 15:00 23:00 Intake Total 240 ml 600 ml 1250 ml Output Total 600 ml 300 ml Balance -360 ml 600 ml 950 ml Intake Oral 240 ml 600 ml IV Total 1250 ml Output Urine Total 600 ml 300 ml Estimated Blood Loss 0 ml Result Diagram: 08/06/17 1220 08/06/17 1220 Imaging Last Impressions Upper GI Series 08/05/17 0000 Signed Impressions: Service Date/Time: Saturday, August 05, 2017 07:53 - CONCLUSION: Upper GI series within normal limits status post gastric bypass. Tulio Ramires MD Objective Remarks GENERAL: Morbidly obese female pleasant, appears in nad. SKIN: Minimal erythema in the right antecubital fossa CARDIOVASCULAR: Regular rate and rhythm without murmurs, gallops, or rubs. RESPIRATORY: Clear to auscultation. Breath sounds equal bilaterally. No wheezes , rales, or rhonchi. GASTROINTESTINAL: Abdomen soft, nondistended. Tender to palpation in the epigastric area. MUSCULOSKELETAL: Extremities without clubbing, cyanosis, or edema. No joint tenderness, effusion, or edema noted. No calf tenderness. NEUROLOGICAL: Awake and alert. Cranial nerves II through XII intact. Motor and sensory grossly within normal limits. Normal speech. A/P Assessment and Plan 1. Abdominal pain/nausea vomiting/status post gastric bypass Patient with multiple complications following her gastric bypass including splenic abscess and abdominal abscess that required revision and drainage at [facility] Abdominal CT and upper GI series within normal limits Going for EGD and exploratory laparoscopic now by Dr Murray 2. Hypotension Blood pressures range from the 90s to 100s systolic and in the 50s diastolic This appears to be baseline for the patient per medical records review Orthostatic vital signs pending Labs are not consistent with dehydration Monitor 3. Anemia Patient reports history of iron deficiency anemia however is noncompliant with her iron Currently normocytic with H&H of 11.6/35.7 Monitor 4. Rash Likely secondary from tape from previous IV Benadryl 5. GERD Continue Protonix 6. COPD Patient satting 99% on room air Monitor respiratory status Not on any home medications Discussed with the patient, nurse, family at bedside Lorena Beaver MD Aug 07, 2017 12:05
--- NOTE | 2017-08-07 12:07 | HHI.PR ---
Immediate Post Op Note Procedure Date: Aug 07, 2017 Pre Op Diagnosis: bowel obstruction, abdominal pain, internal hernia Post Op Diagnosis: same, gastritis Surgeon: You Murray MD Water Pumper(s): see or sheet Procedure: dx lap, lap alejandra, repair of internal hernia at JJ, EGD Findings: internal hernia, gastritis on egd near gj Complications: none Anesthesia: General Drains: None Patient to: PACU Patient Condition: Good You Murray MD Aug 07, 2017 12:07
[2017-08-07] MEDS ORDERED: DO NOT ADM ANY ANTICOAGULANT DRUGS PRN (12:14)
[2017-08-07] MEDS ORDERED: *morphine SULFATE 4 MG/ML PERIprocedure ONLY ONE ×3 (12:16→13:02)
[2017-08-07] MEDS ORDERED: MIDAZOLAM HCL 2 MG/2 ML VIAL ONE (12:23)
[2017-08-07] MEDS ORDERED: *ONDANSETRON 4 MG VIAL PERIprocedural Use ONLY ONE (13:13)
[2017-08-07] MEDS: MORPHINE SULFATE 2 MG/ML INJ IV PRN ×3 (17:13→23:53)
[2017-08-07] MEDS ORDERED: ACETAMIN 325 MG/BUTALBITAL 50 MG/CAFFEINE 40 MG TAB PO ONE (18:00)
[2017-08-07] MEDS: ENOXAPARIN SODIUM 40 MG/0.4 ML SYRINGE SQ SCH (18:30)
[2017-08-07] MEDS: SIMETHICONE 125 MG CHEWABLE TAB PO PRN (20:01)
[2017-08-08] VITALS (13 sets, daily range): BP systolic 94–120; BP diastolic 52–60; PULSE 73–98; RESP 16–20; TEMP 98.5–99; O2SAT 94–97
[2017-08-08] MEDS: oxyCODONE/ACETAMINOPHEN 5 MG/325 MG TAB PO PRN ×2 (00:35→22:22)
[2017-08-08] MEDS: SODIUM CHLOR 0.9% 1000 ML INJ 1,000 ML IV SCH ×4 (02:08→22:15)
[2017-08-08] MEDS: SIMETHICONE 125 MG CHEWABLE TAB PO PRN ×3 (02:18→21:42)
[2017-08-08] MEDS: MORPHINE SULFATE 2 MG/ML INJ IV PRN ×4 (04:31→18:23)
[2017-08-08] MEDS: SODIUM CHLORIDE 0.9% FLUSH 10 ML FLUSH IV FLUSH PRN (04:31)
[2017-08-08 05:30] LABS: AUTOMATED NEUTROPHIL # 4.8 TH/MM3 (1.8-7.7); BASOPHIL % 0.4 % (0.0-2.0); EOSINOPHIL # 0.1 TH/MM3 (0-0.4); EOSINOPHIL % 1.6 % (0.0-4.0); HEMATOCRIT 32.2 % (35.0-46.0); HEMOGLOBIN 10.4 GM/DL (11.6-15.3); LYMPH % 26.1 % (9.0-44.0); MEAN CELL VOLUME 85.1 FL (80.0-100.0); MEAN CORPUSCULAR HEMOGLOBIN 27.4 PG (27.0-34.0); MEAN CORPUSCULAR HGB CONC 32.2 % (32.0-36.0); MEAN PLATELET VOLUME 9.1 FL (7.0-11.0); MONO % 7.1 % (0.0-8.0); MONOCYTE # 0.5 TH/MM3 (0-0.9); NEUT % 64.8 % (16.0-70.0); PLATELET COUNT 259 TH/MM3 (150-450); RED BLOOD COUNT 3.78 MIL/MM3 (4.00-5.30); WHITE BLOOD COUNT 7.5 TH/MM3 (4.0-11.0)
[2017-08-08 05:56] LABS: CALCIUM 7.9 MG/DL (8.5-10.1); CREATININE 0.73 MG/DL (0.50-1.00)
--- NOTE | 2017-08-08 08:07 | HHI.PR ---
Subjective Remarks This is a pleasant 41 y/o Female with history of Gastric Bypass, Iron deficiency anemia, COPD, GERD, Morbid Obesity, who was admitted due to recurrent abdominal pain associated nausea and vomit, CT of the abdomen/pelvis was negative for acute process. status post EGD and Diagnostic laparoscopy, Hypotensive in ER, findings after Diagnostic laparoscopic surgery, Internal hernia, Gastritis on EGD. 08/08: Seen in her bedroom in the presence of her Mr. Prosper Mccarthy, potassium 3.3 on replacement and asked for Phosphorus and magnesium within normal limits, patient eating better will decrease IV fluids. encourage activity. No nausea, vomit or diarrhea. Objective Vital Signs Date Time Temp Pulse Resp B/P (MAP) Pulse Ox O2 Delivery O2 Flow Rate FiO2 08/08/17 04:25 98.6 79 101/56 (71) 95 08/08/17 04:08 78 08/08/17 02:10 73 08/08/17 02:07 99.0 74 16 113/60 (77) 96 08/08/17 01:08 77 08/08/17 00:14 87 08/07/17 23:26 79 08/07/17 23:26 97.9 77 17 99/55 (70) 93 08/07/17 22:04 78 08/07/17 21:01 90 08/07/17 20:14 98 08/07/17 20:14 98.2 83 16 95/53 (67) 96 08/07/17 18:18 92 08/07/17 17:07 76 08/07/17 16:05 86 08/07/17 15:36 98.6 79 19 102/59 (73) 96 08/07/17 15:00 86 08/07/17 14:46 76 08/07/17 13:40 78 19 111/57 (75) 94 08/07/17 13:15 79 16 112/65 (81) 95 Room Air 08/07/17 13:00 76 16 119/69 (86) 95 Room Air 08/07/17 12:45 75 16 108/63 (78) 95 Room Air 08/07/17 12:30 79 16 111/60 (77) 95 Room Air 08/07/17 12:14 98.1 82 16 116/67 (83) 100 Room Air I/O 1/15/18 08/07/17 08/07/17 08/08/17 08/08/17 08/08/17 07:00 15:00 23:00 07:00 15:00 23:00 Intake Total 1250 ml 480 ml 1960 ml Output Total 800 ml 1000 ml 1600 ml Balance 450 ml -520 ml 360 ml Intake Oral 480 ml 960 ml IV Total 1250 ml 1000 ml Output Urine Total 800 ml 1000 ml 1600 ml Estimated Blood Loss 0 ml Result Diagram: 08/08/17 0505 08/08/17 0505 Imaging Last Impressions Upper GI Series 08/05/17 0000 Signed Impressions: Service Date/Time: Saturday, August 05, 2017 07:53 - CONCLUSION: Upper GI series within normal limits status post gastric bypass. Tulio Ramires MD Procedures EGD and Diagnostic Laparoscopic surgery. Other Results Laboratory Tests Test 08/04/17 18:10 08/04/17 18:20 08/08/17 05:05 Urine Collection Type CLEAN CATCH Urine Color YELLOW Urine Turbidity CLEAR Urine pH 8.0 Urine Specific [place] 1.019 Urine Protein NEG mg/dL Urine Glucose (UA) NEG mg/dL Urine Ketones NEG mg/dL Urine Occult Blood NEG Urine Nitrite NEG Urine Bilirubin NEG Urine Leukocyte Esterase NEG Urine WBC 0-2 /hpf Urine Squamous Epithelial Cells 3-5 /hpf Urine Mucus RARE /lpf Microscopic Urinalysis Comment CULT NOT INDICATED Blood Urea Nitrogen 9 MG/DL 3 MG/DL Creatinine 0.74 MG/DL 0.73 MG/DL Random Glucose 76 MG/DL 101 MG/DL Total Protein 7.2 GM/DL Albumin 3.4 GM/DL Calcium Level 8.4 MG/DL 7.9 MG/DL Alkaline Phosphatase 124 U/L Aspartate Amino Transf (AST/SGOT) 17 U/L Alanine Aminotransferase (ALT/SGPT) 53 U/L Total Bilirubin 0.2 MG/DL Sodium Level 138 MEQ/L 142 MEQ/L Potassium Level 3.8 MEQ/L 3.3 MEQ/L Chloride Level 107 MEQ/L 109 MEQ/L Carbon Dioxide Level 24.7 MEQ/L 27.0 MEQ/L Lipase 106 U/L White Blood Count 7.5 TH/MM3 Red Blood Count 3.78 MIL/MM3 Hemoglobin 10.4 GM/DL Hematocrit 32.2 % Mean Corpuscular Volume 85.1 FL Mean Corpuscular Hemoglobin 27.4 PG Mean Corpuscular Hemoglobin Concent 32.2 % Red Cell Distribution Width 15.0 % Platelet Count 259 TH/MM3 Mean Platelet Volume 9.1 FL Neutrophils (%) (Auto) 64.8 % Lymphocytes (%) (Auto) 26.1 % Monocytes (%) (Auto) 7.1 % Eosinophils (%) (Auto) 1.6 % Basophils (%) (Auto) 0.4 % Neutrophils # (Auto) 4.8 TH/MM3 Lymphocytes # (Auto) 2.0 TH/MM3 Monocytes # (Auto) 0.5 TH/MM3 Eosinophils # (Auto) 0.1 TH/MM3 Basophils # (Auto) 0.0 TH/MM3 CBC Comment DIFF FINAL Differential Comment Anion Gap 6 MEQ/L Estimat Glomerular Filtration Rate 88 ML/MIN Objective Remarks GENERAL: Morbidly obese female pleasant, appears in nad. SKIN: Minimal erythema in the right antecubital fossa CARDIOVASCULAR: Regular rate and rhythm without murmurs, gallops, or rubs. RESPIRATORY: Clear to auscultation. Breath sounds equal bilaterally. No wheezes , rales, or rhonchi. GASTROINTESTINAL: Abdomen soft, nondistended. Tender to palpation in the epigastric area. MUSCULOSKELETAL: Extremities without clubbing, cyanosis, or edema. No joint tenderness, effusion, or edema noted. No calf tenderness. NEUROLOGICAL: Awake and alert. Cranial nerves II through XII intact. Motor and sensory grossly within normal limits. Normal speech. Medications and IVs Current Medications Medications (Trade) Dose Ordered Sig/Myra Route Start Time Stop Time Status Last Admin (Morphine Inj) 2 mg Q4H PRN IV 08/04/17 23:00 08/08/17 04:31 (Zofran Inj) 4 mg Q6H PRN IV PUSH 08/04/17 23:00 08/07/17 23:53 Sodium Chloride 1,000 ml @ 125 mls/hr Q8H IV 08/04/17 22:57 08/08/17 02:08 (NS Flush) 2 ml BID IV FLUSH 08/04/17 23:00 08/07/17 20:03 (NS Flush) 2 ml UNSCH PRN IV FLUSH 08/04/17 23:00 08/08/17 04:31 (Protonix Inj) 40 mg DAILY IV PUSH 08/05/17 09:00 08/07/17 08:31 (Percocet 5-325 Mg) 1 tab Q4H PRN PO 08/04/17 23:00 08/08/17 00:35 (Fioricet 325-50-40) 1 tab Q4H PRN PO 08/06/17 14:00 08/06/17 13:55 (Benadryl) 25 mg Q6H PRN PO 08/06/17 15:15 08/07/17 21:30 Lactated Ringer's 1,000 ml @ 30 mls/hr Q24H PRN IV 08/07/17 02:30 08/10/17 02:29 08/07/17 08:34 Sodium Chloride 500 ml @ 30 mls/hr [id number] PRN IV 08/07/17 02:30 08/10/17 02:29 (Lopressor) 25 mg [employer] PRN PO 08/07/17 02:30 08/10/17 02:29 (Betadine 5% Antisepsis Kit) 1 applic [employer] PRN EACH NARE 08/07/17 02:30 08/10/17 02:29 (Chlorhexidine 2% Cloth) 3 pack [employer] PRN TOPICAL 08/07/17 02:30 08/10/17 02:29 (NovoLIN R INJ) See Protocol Table ... J[employer] UND[employer]WRITER PRN SQ 08/07/17 02:30 08/10/17 02:29 Miscellaneous Information ALL NURSING DEPARTME... UNSCH PRN .XX 08/07/17 12:14 08/08/17 12:13 (Lovenox Inj) 40 mg Q24H SQ 08/07/17 18:00 08/07/17 18:30 (Phazyme Chew) 125 mg Q6H PRN PO 08/07/17 19:45 08/08/17 02:18 A/P Assessment and Plan 1. Abdominal pain/nausea vomiting/status post gastric bypass Patient with multiple complications following her gastric bypass including splenic abscess and abdominal abscess that required revision and drainage at [facility] Abdominal CT and upper GI series within normal limits, status post EGD and Diagnostic Laparoscopic surgery found Internal Hernia and Gastritis. masoudle continue present care advanced diet by General Surgery. 2. Hypotension Improving patient eating well decreased IV fluids. 3. Iron deficiency anemia, noncompliant with Iron intake, at this time Hemoglobin 10.4 start Venofer 100 mg daily for three days while Hospitalized. 4. Rash Likely secondary from tape 5. GERD Continue Protonix 6. COPD non exacerbated, continue Bronchodilator, Mucolytic and incentive spirometry 7. Hypokalemia replaced Discussed with the patient, nurse, at bedside. Discharge Planning as per Attending physician. Sidney Oconnor MD Aug 08, 2017 08:07
[2017-08-08 08:44] LABS: MAGNESIUM 2.1 MG/DL (1.5-2.5); PHOSPHORUS 3.2 MG/DL (2.5-4.9)
[2017-08-08] MEDS: PANTOPRAZOLE SODIUM 40 MG VIAL IV PUSH SCH (09:01)
[2017-08-08] MEDS: IRON SUCROSE INJ 100 MG in SODIUM CHLORIDE 0.9% INJ 100 ML IV SCH (09:06)
[2017-08-08] MEDS: SODIUM CHLORIDE 0.9% FLUSH 10 ML FLUSH IV FLUSH SCH ×2 (09:15→21:00)
[2017-08-08] MEDS: RESP: ALBUTEROL 2.5 MG/IPRATROPIUM 0.5 MG NEB (SCH) NEB ×3 (10:42→20:54)
[2017-08-08] MEDS ORDERED: MULTIVITAMIN INJ 10 ML, THIAMINE INJ 100 MG, FOLIC ACID INJ 1 MG in SODIUM CHLORID 0.9%... IV ONE (13:30)
--- NOTE | 2017-08-08 14:29 | MP ---
cc: JOSEPH MURRAY MD DATE OF SURGERY 08/07/2017 PREOPERATIVE DIAGNOSES Abdominal pain. Internal hernia. Bowel obstruction. Epigastric pain. POSTOPERATIVE DIAGNOSES Abdominal pain. Internal hernia. Bowel obstruction. Epigastric pain. Gastritis. SURGEON Dr. Joseph Murray PROCEDURE PERFORMED 1. Diagnostic laparoscopy. 2. Laparoscopic lysis of adhesions. 3. Laparoscopic repair of ventral hernia, jejunojejunostomy. 4. Esophagogastroduodenoscopy. SURGEON Joseph Murray MD DIGITAL ANALYTICS MANAGER See OR sheet. IV FLUIDS See anesthesia sheet. ESTIMATED BLOOD LOSS 5 cc. DRAINS None. COMPLICATIONS None. WOUND CLASSIFICATION: Clean. FINDINGS Mesenteric defect at the jejunojejunostomy anastomosis. Multiple intraabdominal adhesions. Gastritis on EGD. INDICATION The patient is a 41-year-old female who presents with acute onset of epigastric pain, actually it is acute on chronic. She has had this pain recurrence for some time now. The patient states she has several areas of pain including epigastric area. She also had some lower abdominal pain and some significant bloating for which she came to the emergency department. Further workup including CT scan which was relatively undiagnostic. P.O. challenge was attempted and the patient had recurrence of distension and abdominal pain. Concern was for a dynamic internal hernia, therefore decision was made for exploration and EGD. DETAILS OF PROCEDURE The patient was taken to the operating suite, placed in left lateral decubitus position. Time-out was done stating correct patient, procedure, surgical site. A bite block was placed. The gastroscope was obtained and entered the mouth, down the oropharynx and esophagus at the gastrojejunal anastomosis. There was noted to be some minimal irritation and gastritis to the proximal stomach at the gastrojejunostomy; no evidence of ulceration. Relatively normal, patent gastrojejunostomy, normal size blind limb. Therefore the scope was advanced. The bowel was decompressed. Air was removed. The scope was retracted under direct visualization and the commencement of the laparoscopic procedure was done. The patient was re-prepped and draped and placed in supine position. Another time-out was done stating correct patient, procedure surgical site. Attention was directed to 18-cm below the xyphoid process, local anesthetic injected, stab-christina incision made. The Nema Labsi 5-mm [employer] camera was entered into the abdomen safely, the abdomen insufflated to 15 mmHg peritoneum. On cursory inspection there was no evidence of injury. There was noted be on multiple scattered adhesions throughout the abdomen. Two other ports were placed on the right, one right upper quadrant, one right lower quadrant. The right upper quadrant was a 5-mm port, the right lower quadrant was a 12-mm port and a left upper quadrant 5-mm port was also placed. The patient was placed in reverse Trendelenburg, airplaned to the left. The gastrojejunostomy was identified as adhesions were taken down and this was minimal mobilized. Again other anterior abdominal adhesions were also mobilized. The Brigitte limb was followed down, traced down to the jejunojejunostomy. The common general and biliopancreatic limbs were also identified. There was noted to be patency at the jejunojejunostomy where potential bowel was noted protruding through this internal hernia site. This was derotated and reduced. The bowel was placed in a more anatomical alignment. Several adhesions were noted to be kinking the Brigitte limb at the jejunojejunostomy; these were lysed carefully with Endo fercho. The mesenteric defect was closed with a 2-0 Polysorb in a running fashion. Two other stay sutures were placed in order again to re-annotate the bowel limbs. Further, the patient was then placed in the Trendelenburg position and the terminal ileum was identified. Several adhesions were lysed down his right lower quadrant area. The small bowel was run proximal to the jejunojejunostomy, noted to be patent. No other significant abnormality was noted in this area. Further commencement of lysis of adhesions to several other locations in order to mobilize completely and have the bowel free in the abdomen. Following this the abdomen was then desufflated. Prior to desufflation of the right lower quadrant 12-mm trocar was closed with a 0 Vicryl on a suture passer. Local anesthetic was injected. Hemostasis was obtained. 4-0 Monocryls closed the subcuticular sutures. Sterile dressings were placed including Mastisol and Steri-Strips. The patient tolerated the procedure well. There was no intraoperative complication. All lap and instrument counts were correct at the end of the procedure. The patient was extubated and taken stable to the PACU. MD GO Hernandez/GEORGE /8:57 PM /10:06 AM
--- NOTE | 2017-08-08 15:54 | HHI.PR ---
Subjective Subjective Notes doing well, no acute issues, gas pain Objective Vitals/I&O Vital Signs Date Time Temp Pulse Resp B/P (MAP) Pulse Ox O2 Delivery O2 Flow Rate FiO2 08/08/17 15:44 98.7 89 16 107/56 (73) 97 08/07/17 13:15 Room Air Labs Laboratory Tests Test 08/08/17 05:05 White Blood Count 7.5 Red Blood Count 3.78 Hemoglobin 10.4 Hematocrit 32.2 Mean Corpuscular Volume 85.1 Mean Corpuscular Hemoglobin 27.4 Mean Corpuscular Hemoglobin Concent 32.2 Red Cell Distribution Width 15.0 Platelet Count 259 Mean Platelet Volume 9.1 Neutrophils (%) (Auto) 64.8 Lymphocytes (%) (Auto) 26.1 Monocytes (%) (Auto) 7.1 Eosinophils (%) (Auto) 1.6 Basophils (%) (Auto) 0.4 Neutrophils # (Auto) 4.8 Lymphocytes # (Auto) 2.0 Monocytes # (Auto) 0.5 Eosinophils # (Auto) 0.1 Basophils # (Auto) 0.0 CBC Comment DIFF FINAL Differential Comment Blood Urea Nitrogen 3 Creatinine 0.73 Random Glucose 101 Calcium Level 7.9 Sodium Level 142 Potassium Level 3.3 Chloride Level 109 Carbon Dioxide Level 27.0 Anion Gap 6 Estimat Glomerular Filtration Rate 88 Phosphorus Level 3.2 Magnesium Level 2.1 Abdomen: Other (soft incisional tenderness) A/P Assessment and Plan hx of gastric bypass, complex post op course, development of recurrent pain and distension POD 1 Dx lap, lap alejandra, repair of internal hernia PLAN ok for puree diet, bariatric remove harkins pain control oob, ambulate lovenox dvt ppx You Murray MD Aug 08, 2017 15:54
[2017-08-08] MEDS: ONDANSETRON HCL 4 MG/2 ML VIAL IV PUSH PRN ×2 (16:26→22:19)
[2017-08-08] MEDS: diphenhydrAMINE HCL 25 MG CAP PO PRN (18:22)
[2017-08-08] MEDS: ENOXAPARIN SODIUM 40 MG/0.4 ML SYRINGE SQ SCH (18:23)
[2017-08-09 00:20] VITALS: PULSE 96
[2017-08-09] MEDS: oxyCODONE/ACETAMINOPHEN 5 MG/325 MG TAB PO PRN ×2 (02:41→08:44)
[2017-08-09 03:07] VITALS: BP 106/58; PULSE 91; RESP 18; TEMP 99; O2SAT 95
[2017-08-09] MEDS: RESP: ALBUTEROL 2.5 MG/IPRATROPIUM 0.5 MG NEB (SCH) NEB ×2 (03:26→09:10)
[2017-08-09 04:14] VITALS: PULSE 93
--- NOTE | 2017-08-09 07:33 | HHI.PR ---
Subjective Subjective Notes no acute issues, +flatus, no bm, tolerating diet no nausea Objective Vitals/I&O Vital Signs Date Time Temp Pulse Resp B/P (MAP) Pulse Ox O2 Delivery O2 Flow Rate FiO2 08/09/17 04:14 93 08/09/17 03:07 99.0 18 106/58 (74) 95 08/07/17 13:15 Room Air Abdomen: Other (soft incisional tenderness) A/P Assessment and Plan hx of gastric bypass, complex post op course, development of recurrent pain and distension POD 2 Dx lap, lap alejandra, repair of internal hernia PLAN ok for puree diet, bariatric pain control oob, ambulate lovenox dvt ppx d/c home today f/u in bariatric office 1 week You Murray MD Aug 09, 2017 07:33
--- NOTE | 2017-08-09 08:01 | HHI.PR ---
Subjective Remarks This is a pleasant 41 y/o Female with history of Gastric Bypass, Iron deficiency anemia, COPD, GERD, Morbid Obesity, who was admitted due to recurrent abdominal pain associated nausea and vomit, CT of the abdomen/pelvis was negative for acute process. status post EGD and Diagnostic laparoscopy, Hypotensive in ER, findings after Diagnostic laparoscopic surgery, Internal hernia, Gastritis on EGD. 08/08: Seen in her bedroom in the presence of her Mr. Prosper Mccarthy, potassium 3.3 on replacement and asked for Phosphorus and magnesium within normal limits, patient eating better will decrease IV fluids. encourage activity. 08/09: Stable in her bedroom, discussed with her and about the Compliance she needs to improve even with Bariatric Surgery performed, Doctor You Murray in to see the patient and recommended for discharge today, no nausea, vomit or diarrhea. Objective Vital Signs Date Time Temp Pulse Resp B/P (MAP) Pulse Ox O2 Delivery O2 Flow Rate FiO2 08/09/17 04:14 93 08/09/17 03:07 99.0 91 18 106/58 (74) 95 08/09/17 00:20 96 08/08/17 23:55 98.5 98 16 94/52 (66) 94 08/08/17 21:00 98.7 90 16 98/53 (68) 96 08/08/17 20:05 89 08/08/17 15:44 98.7 89 16 107/56 (73) 97 08/08/17 11:52 98.5 86 16 96/59 (71) 96 08/08/17 08:56 98.8 87 20 120/60 (80) 95 I/O 08/08/17 08/08/17 08/08/17 08/09/17 08/09/17 08/09/17 07:00 15:00 23:00 07:00 15:00 23:00 Intake Total 1960 ml 1095 ml 550 ml 600 ml Output Total 1600 ml 1250 ml 3950 ml 950 ml Balance 360 ml -155 ml -3400 ml -350 ml Intake Oral 960 ml 600 ml IV Total 1000 ml 1095 ml 550 ml Output Urine Total 1600 ml 1250 ml 3950 ml 950 ml Result Diagram: 08/08/17 0505 08/08/17 0505 Imaging Last Impressions Upper GI Series 08/05/17 0000 Signed Impressions: Service Date/Time: Saturday, August 05, 2017 07:53 - CONCLUSION: Upper GI series within normal limits status post gastric bypass. Tulio Ramires MD Procedures EGD and Diagnostic Laparoscopic surgery. Other Results Laboratory Tests Test 08/04/17 18:10 08/04/17 18:20 08/08/17 05:05 Urine Collection Type CLEAN CATCH Urine Color YELLOW Urine Turbidity CLEAR Urine pH 8.0 Urine Specific [place] 1.019 Urine Protein NEG mg/dL Urine Glucose (UA) NEG mg/dL Urine Ketones NEG mg/dL Urine Occult Blood NEG Urine Nitrite NEG Urine Bilirubin NEG Urine Leukocyte Esterase NEG Urine WBC 0-2 /hpf Urine Squamous Epithelial Cells 3-5 /hpf Urine Mucus RARE /lpf Microscopic Urinalysis Comment CULT NOT INDICATED Blood Urea Nitrogen 9 MG/DL 3 MG/DL Creatinine 0.74 MG/DL 0.73 MG/DL Random Glucose 76 MG/DL 101 MG/DL Total Protein 7.2 GM/DL Albumin 3.4 GM/DL Calcium Level 8.4 MG/DL 7.9 MG/DL Alkaline Phosphatase 124 U/L Aspartate Amino Transf (AST/SGOT) 17 U/L Alanine Aminotransferase (ALT/SGPT) 53 U/L Total Bilirubin 0.2 MG/DL Sodium Level 138 MEQ/L 142 MEQ/L Potassium Level 3.8 MEQ/L 3.3 MEQ/L Chloride Level 107 MEQ/L 109 MEQ/L Carbon Dioxide Level 24.7 MEQ/L 27.0 MEQ/L Lipase 106 U/L White Blood Count 7.5 TH/MM3 Red Blood Count 3.78 MIL/MM3 Hemoglobin 10.4 GM/DL Hematocrit 32.2 % Mean Corpuscular Volume 85.1 FL Mean Corpuscular Hemoglobin 27.4 PG Mean Corpuscular Hemoglobin Concent 32.2 % Red Cell Distribution Width 15.0 % Platelet Count 259 TH/MM3 Mean Platelet Volume 9.1 FL Neutrophils (%) (Auto) 64.8 % Lymphocytes (%) (Auto) 26.1 % Monocytes (%) (Auto) 7.1 % Eosinophils (%) (Auto) 1.6 % Basophils (%) (Auto) 0.4 % Neutrophils # (Auto) 4.8 TH/MM3 Lymphocytes # (Auto) 2.0 TH/MM3 Monocytes # (Auto) 0.5 TH/MM3 Eosinophils # (Auto) 0.1 TH/MM3 Basophils # (Auto) 0.0 TH/MM3 CBC Comment DIFF FINAL Differential Comment Anion Gap 6 MEQ/L Estimat Glomerular Filtration Rate 88 ML/MIN Phosphorus Level 3.2 MG/DL Magnesium Level 2.1 MG/DL Objective Remarks GENERAL: Morbidly obese female pleasant, appears in nad. SKIN: Minimal erythema in the right antecubital fossa CARDIOVASCULAR: Regular rate and rhythm without murmurs, gallops, or rubs. RESPIRATORY: Clear to auscultation. Breath sounds equal bilaterally. No wheezes , rales, or rhonchi. GASTROINTESTINAL: Abdomen soft, nondistended. Tender to palpation in the epigastric area. MUSCULOSKELETAL: Extremities without clubbing, cyanosis, or edema. No joint tenderness, effusion, or edema noted. No calf tenderness. NEUROLOGICAL: Awake and alert. Cranial nerves II through XII intact. Motor and sensory grossly within normal limits. Normal speech. Medications and IVs Current Medications Medications (Trade) Dose Ordered Sig/Myra Route Start Time Stop Time Status Last Admin (Morphine Inj) 2 mg Q4H PRN IV 08/04/17 23:00 08/08/17 18:23 (Zofran Inj) 4 mg Q6H PRN IV PUSH 08/04/17 23:00 08/08/17 22:19 Sodium Chloride 1,000 ml @ 83 mls/hr Q12H3M IV 08/04/17 22:57 08/08/17 22:15 (NS Flush) 2 ml BID IV FLUSH 08/04/17 23:00 08/08/17 09:15 (NS Flush) 2 ml UNSCH PRN IV FLUSH 08/04/17 23:00 08/08/17 04:31 (Protonix Inj) 40 mg DAILY IV PUSH 08/05/17 09:00 08/08/17 09:01 (Percocet 5-325 Mg) 1 tab Q4H PRN PO 08/04/17 23:00 08/09/17 02:41 (Fioricet 325-50-40) 1 tab Q4H PRN PO 08/06/17 14:00 08/06/17 13:55 (Benadryl) 25 mg Q6H PRN PO 08/06/17 15:15 08/08/17 18:22 Lactated Ringer's 1,000 ml @ 30 mls/hr Q24H PRN IV 08/07/17 02:30 08/10/17 02:29 08/07/17 08:34 Sodium Chloride 500 ml @ 30 mls/hr [id number] PRN IV 08/07/17 02:30 08/10/17 02:29 (Lopressor) 25 mg [employer] TECHNICI[employer] PRN PO 08/07/17 02:30 08/10/17 02:29 (Betadine 5% Antisepsis Kit) 1 applic [employer] PRN EACH NARE 08/07/17 02:30 08/10/17 02:29 (Chlorhexidine 2% Cloth) 3 pack [employer] PRN TOPICAL 08/07/17 02:30 08/10/17 02:29 (NovoLIN R INJ) See Protocol Table ... [employer]CH[employer]ICIANS PRN SQ 08/07/17 02:30 08/10/17 02:29 (Lovenox Inj) 40 mg Q24H SQ 08/07/17 18:00 08/08/17 18:23 (Phazyme Chew) 125 mg Q6H PRN PO 08/07/17 19:45 08/08/17 21:42 Iron Sucrose 100 mg/Sodium Chloride 105 ml @ 105 mls/hr DAILY IV 08/08/17 09:00 08/10/17 09:59 08/08/17 09:06 (Duoneb Neb) 1 ampule Q6HR NEB NEB 08/08/17 10:00 08/09/17 03:26 A/P Assessment and Plan 1. Abdominal pain/nausea vomiting/status post gastric bypass Patient with multiple complications following her gastric bypass including splenic abscess and abdominal abscess that required revision and drainage at [facility] Abdominal CT and upper GI series within normal limits, status post EGD and Diagnostic Laparoscopic surgery found Internal Hernia and Gastritis. lorna continue present care advanced diet by General Surgery. as per General Surgery okay to discharge today, 2. Hypotension Improved 3. Iron deficiency anemia, noncompliant with Iron intake, at this time Hemoglobin 10.4 start Venofer 100 mg daily for three days while Hospitalized. 4. Rash Likely secondary from tape 5. GERD Continue Protonix 6. COPD non exacerbated, continue Bronchodilator, Mucolytic and incentive spirometry 7. Hypokalemia replaced Discussed with the patient, nurse, at bedside. Okay to discharge from Medical standpoint. Discharge Planning as per Attending physician. Sidney Oconnor MD 17, 2018 08:01
[2017-08-09] MEDS ORDERED: POTASSIUM CHLORIDE 20 MEQ CONTROLLED RELEASE TAB PO ONE (08:15)
[2017-08-09] MEDS: PANTOPRAZOLE SODIUM 40 MG VIAL IV PUSH SCH (08:43)
[2017-08-09] MEDS: IRON SUCROSE INJ 100 MG in SODIUM CHLORIDE 0.9% INJ 100 ML IV SCH (08:44)
[2017-08-09] MEDS: SODIUM CHLORIDE 0.9% FLUSH 10 ML FLUSH IV FLUSH SCH (08:44)
[2017-08-09] MEDS: ONDANSETRON HCL 4 MG/2 ML VIAL IV PUSH PRN (08:52)
[2017-08-09 08:58] VITALS: BP 111/71; PULSE 83; RESP 20; TEMP 98.3; O2SAT 99
== END 2017-08-09 12:00 | disposition home or self-care (01) | DRG 336 ==
LOC: PHED 17:34 → PHEDA 18:52 → NEPHCDU 08-05 03:06 → OBSVTOIN 08-06 08:35 → N07B 08-07 09:11 → HCPC 08-07 14:10 → HCIN 08-08 02:02
PROVIDERS: ADMIT Surgery; ATTEND Surgery
PROC: 0WQF4ZZ Repair Abdominal Wall, Percutaneous Endoscopic Approach (ICD-10-PCS; 2017-08-07)
PROC: 0DJ08ZZ Inspection of Upper Intestinal Tract, Via Natural or Artificial Opening Endoscopic (ICD-10-PCS; 2017-08-07)
PROC: 0DN84ZZ Release Small Intestine, Percutaneous Endoscopic Approach (ICD-10-PCS; principal; 2017-08-07 09:31)
DX: K46.0 Unspecified abdominal hernia with obstruction, without gangrene (principal); Z68.42 Body mass index [BMI] 45.0-49.9, adult; I95.9 Hypotension, unspecified; E66.01 Morbid (severe) obesity due to excess calories; J44.9 Chronic obstructive pulmonary disease, unspecified; K29.70 Gastritis, unspecified, without bleeding; K66.0 Peritoneal adhesions (postprocedural) (postinfection); K21.9 Gastro-esophageal reflux disease without esophagitis; D50.9 Iron deficiency anemia, unspecified; R21 Rash and other nonspecific skin eruption; E87.6 Hypokalemia; Z98.84 Bariatric surgery status; Z87.891 Personal history of nicotine dependence; Z91.14 Patient's other noncompliance with medication regimen
CPT/HCPCS: 74241; 80048; 80053; 81001; 83690; 83735; 84100; 85025; 94150; 94640; 94664; 96361; 96375; 96376; C9113; G0378; J0330; J1650; J1756; J2250; J2270; J2405; J2710; J3010; J3370; J3411; J7030; J7040; J7120

== ENCOUNTER 2017-10-05 17:57 | Emergency (ER) | payer MEDICAID ==
[~2017-10-05] VITALS: Ht 154.9 cm; Wt 111.0 kg
[~2017-10-05 17:57] MED LIST changes: -METR-1 PO; -TYLETAB34 PO
[2017-10-05 18:05] VITALS: BP 122/65; PULSE 80; RESP 16; TEMP 98.8; O2SAT 98
[2017-10-05] MEDS ORDERED: NYST15T TOPICAL (20:49)
--- NOTE | 2017-10-05 20:49 | PD ---
HPI Chief Complaint: ENT Complaint Time Seen by Provider: 19:44 Travel History International Travel<30 days: No Contact w/Intl Traveler<30days: No Traveled to known affect area: No History of Present Illness HPI Patient is a 41-year-old female prediabetic female presents emergency department for evaluation of rash under her pannus as well as at her bilateral anterior tibia. Patient states been going on for the past 3 days, gradually worsening, not associate any fevers nausea vomiting diarrhea constipation. States symptoms are moderate, gradually worsening, location as above, context as above. PFSH Past Medical History Anemia: No Arthritis: No Asthma: Yes Autoimmune Disease: No Blood Disorders: No Anxiety: No Depression: Yes Heart Rhythm Problems: No Cancer: No Cardiovascular Problems: No High Cholesterol: No Chemotherapy: No Chest Pain: No Congestive Heart Failure: No COPD: Yes Cerebrovascular Accident: No Diminished Hearing: No Endocrine: No Gastrointestinal Disorders: Yes GERD: Yes Glaucoma: No Genitourinary: Yes Headaches: Yes Hepatitis: No Hiatal Hernia: No Hypertension: No Immune Disorder: No Implanted Vascular Access Dvce: No Kidney Stones: No Musculoskeletal: Yes (RT. HAND/WRIST PAIN NERVE PAIN; CARPAL TUNNEL RT. WRIST/ HAND) Neurologic: Yes Psychiatric: Yes Reproductive: No Respiratory: Yes (asthma before gastric bypass) Immunizations Current: Yes Migraines: No Myocardial Infarction: No Radiation Therapy: No Renal Failure: No Seizures: No Sickle Cell Disease: No Thyroid Disease: No Ulcer: No ?: Not LMP: 2 weeks ago Menopausal: No : 3 Para: 2 Miscarriage: 1 Dilation and Curettage (D&C): Yes Tubal Ligation: Yes Past Surgical History Abdominal Surgery: Yes ( INFECTION REMOVED AROUND SPLEEN) AICD: No Appendectomy: No Arteriovenous Shunt: No Cardiac Surgery: No Section: Yes (X 2) Cholecystectomy: Yes Ear Surgery: No Endocrine Surgery: No Eye Surgery: No Genitourinary Surgery: No Gynecologic Surgery: Yes (TUBAL LIGATION; D/C; X2) Insulin Pump: No Joint Replacement: No Neurologic Surgery: No Oral Surgery: Yes (TONSILLECTOMY) Pacemaker: No Tonsillectomy: Yes Other Surgery: Yes (TRACH AND REVERSAL) Social History Alcohol Use: Yes (RARE) Tobacco Use: Yes (VAPOR) Substance Use: No Allergies-Medications (Allergen,Severity, Reaction): Coded Allergies: Fish Containing Products (Verified Allergy, Severe, Anaphylaxis, 10/05/17) shellfish derived (Verified Allergy, Severe, Anaphylaxis, 10/05/17) shrimp (Verified Allergy, Severe, Anaphylaxis, 10/05/17) penicillin G (Verified Allergy, Unknown, CHILDHOOD ALLERGY, 10/05/17) clindamycin (Verified Adverse Reaction, Severe, RASH, 10/05/17) Reported Meds & Prescriptions Reported Meds & Active Scripts Active Nystatin Topical (Nystatin) 100,000 unit/gm Cream 1 Applic TOPICAL BID Review of Systems Except as stated in HPI: all other systems reviewed are Neg Physical Exam Narrative GENERAL: Well-nourished, well-developed patient. SKIN: Focused skin assessment warm/dry. There is a pannicular rash red with some satellite lesions consistent with a tinea corporis. On the anterior tibial surface the patient appears to have several small cysts spots over hair follicles likely consistent with a mild folliculitis bilaterally. HEAD: Normocephalic. EYES: No scleral icterus. No injection or drainage. NECK: Supple, trachea midline. No JVD or lymphadenopathy. CARDIOVASCULAR: Regular rate and rhythm without murmurs, gallops, or rubs. RESPIRATORY: Breath sounds equal bilaterally. No accessory muscle use. GASTROINTESTINAL: Abdomen soft, non-tender, nondistended. MUSCULOSKELETAL: No cyanosis, or edema. BACK: Nontender without obvious deformity. No CVA tenderness. Data Data Last Documented VS Vital Signs Date Time Temp Pulse Resp B/P (MAP) Pulse Ox O2 Delivery O2 Flow Rate FiO2 10/05/17 18:05 98.8 80 16 122/65 (84) 98 Orders Orders Bedside Glucose XOCHITL.CSUGAR (10/05/17 19:52) Diphenhydramine (Benadryl) (10/05/17 21:00) Ed Discharge Order (10/05/17 20:50) MDM Medical Decision Making Medical Screen Exam Complete: Yes Emergency Medical Condition: Yes Differential Diagnosis Hyperglycemia, tinea cruris, folliculitis. Narrative Course Patient room to the emergency department, she appears well, blood sugar was checked and is only 89. This time she is stable for discharge, discussed symptomatic management return to ED criteria. Follow-up with primary care physician Diagnosis Primary Impression: Tinea cruris Med/Other Pt SpecificInfo: Prescription(s) given Scripts Nystatin Topical (Nystatin Topical) 100,000 unit/gm Cream 1 APPLIC TOPICAL BID for Infection, #15 GM 0 Refills Prov: Reg Ramsey MD 10/05/17 Disposition: 01 DISCHARGE HOME Condition: Stable Reg Ramsey MD Oct 05, 2017 20:49
[2017-10-05] MEDS ORDERED: diphenhydrAMINE HCL 25 MG CAP PO ONE (21:00)
== END 2017-10-05 21:02 | disposition home or self-care (01) ==
LOC: PHED 17:57 → PHEFT 21:02
DX: B35.6 Tinea cruris (principal); J45.909 Unspecified asthma, uncomplicated; J44.9 Chronic obstructive pulmonary disease, unspecified
CPT/HCPCS: 99283

== ENCOUNTER 2017-10-20 18:00 | Inpatient (IN) | payer MEDICAID ==
[~2017-10-20] VITALS: Ht 154.9 cm; Wt 113.0 kg
[2017-10-20] VITALS (8 sets, daily range): BP systolic 80–110; BP diastolic 42–61; PULSE 97–116; RESP 22–28; TEMP 99.3–100.4; O2SAT 95–100
[~2017-10-20 18:00] MED LIST changes: -HYDR-3516 PO; +NYST15T TOPICAL
[2017-10-20] MEDS ORDERED: SODIUM CHLOR 0.9% 1000 ML INJ 1,000 ML IV SCH ×2 (19:15)
[2017-10-20] MEDS ORDERED: LOPERAMIDE HCL 2 MG CAP PO ONE (19:15)
[2017-10-20] MEDS ORDERED: ONDANSETRON HCL 4 MG/2 ML VIAL IV ONE (19:15)
[2017-10-20] MEDS ORDERED: DICYCLOMINE HCL 20 MG/2 ML VIAL IM ONE (19:15)
[2017-10-20 19:31] LABS: AUTOMATED NEUTROPHIL # 5.4 TH/MM3 (1.8-7.7); BASOPHIL # 0.1 TH/MM3 (0-0.2); BASOPHIL % 1.4 % (0.0-2.0); EOSINOPHIL % 0.1 % (0.0-4.0); HEMATOCRIT 38.8 % (35.0-46.0); HEMOGLOBIN 12.6 GM/DL (11.6-15.3); LYMPH % 7.4 % (9.0-44.0); LYMPHOCYTE # 0.5 TH/MM3 (1.0-4.8); MEAN CELL VOLUME 83.8 FL (80.0-100.0); MEAN CORPUSCULAR HEMOGLOBIN 27.3 PG (27.0-34.0); MEAN CORPUSCULAR HGB CONC 32.6 % (32.0-36.0); MEAN PLATELET VOLUME 9.1 FL (7.0-11.0); MONO % 4.2 % (0.0-8.0); MONOCYTE # 0.3 TH/MM3 (0-0.9); NEUT % 86.9 % (16.0-70.0); PLATELET COUNT 247 TH/MM3 (150-450); RED BLOOD COUNT 4.62 MIL/MM3 (4.00-5.30); RED CELL DISTRIBUTION WIDTH 14.2 % (11.6-17.2); WHITE BLOOD COUNT 6.3 TH/MM3 (4.0-11.0)
[2017-10-20 19:44] LABS: CHLORIDE 105 MEQ/L (98-107); SODIUM (NA) 136 MEQ/L (136-145)
[2017-10-20 19:49] LABS: ALBUMIN 3.2 GM/DL (3.4-5.0); BICARBONATE 26.7 MEQ/L (21.0-32.0); BLOOD UREA NITROGEN 10 MG/DL (7-18); GLUCOSE,RANDOM 107 MG/DL (74-106)
--- NOTE | 2017-10-20 19:51 | PD ---
HPI Chief Complaint: GI Complaint Time Seen by Provider: 18:57 Travel History International Travel<30 days: No Contact w/Intl Traveler<30days: No Traveled to known affect area: No History of Present Illness HPI 41-year-old woman, presents to the emergency department complaining of abdominal pain nausea vomiting diarrhea starting today. She has a history of abdominal problems, she had a gastric bypass in 2011 complicated by pneumonia, prolonged intubation and tracheostomy, cholecystectomy, and prolonged hospital stay. She states since that time she had intermittent trouble with her stomach , but once or twice a year. Last year in July for pain. Does not typically have vomiting and diarrhea. She states this morning around 3 AM she woke up with nausea vomiting and copious watery diarrhea. She also abdominal cramping. This is been ongoing throughout the day. She has had fevers and chills with it. No definite sick contacts. No recent hospitalizations. No recent antibiotics. History Past Medical History Narrative Medical History of gastric bypass in 2011, incisional hernia, cholecystectomy Anemia Prediabetes Influenza Vaccination: No LMP: LAST MONTH/IRREG Menopausal: No : 3 Para: 2 Dilation and Curettage (D&C): Yes Social History Alcohol Use: Yes (RARE) Tobacco Use: Yes (VAPOR) Allergies-Medications (Allergen,Severity, Reaction): Coded Allergies: Fish Containing Products (Verified Allergy, Severe, Anaphylaxis, 10/20/17) shellfish derived (Verified Allergy, Severe, Anaphylaxis, 10/20/17) shrimp (Verified Allergy, Severe, Anaphylaxis, 10/20/17) penicillin G (Verified Allergy, Unknown, CHILDHOOD ALLERGY, 10/20/17) clindamycin (Verified Adverse Reaction, Severe, RASH, 10/20/17) Reported Meds & Prescriptions Reported Meds & Active Scripts Active Nystatin Topical (Nystatin) 100,000 unit/gm Cream 1 Applic TOPICAL BID Review of Systems Except as stated in HPI: all other systems reviewed are Neg Physical Exam Narrative GENERAL: 41-year-old woman, appears uncomfortable, nontoxic. SKIN: Skin is a little bit clammy. No rash. HEAD: Atraumatic. Normocephalic. EYES: Pupils equal and round. No scleral icterus. No injection or drainage. ENT: No nasal bleeding or discharge. Mucous membranes pink and moist. NECK: Trachea midline. No JVD. CARDIOVASCULAR: Regular rate and rhythm. No murmur appreciated. RESPIRATORY: No accessory muscle use. Clear to auscultation. Breath sounds equal bilaterally. GASTROINTESTINAL: Abdomen is obese and soft. Audible borborygmi. No distention. No significant tenderness. MUSCULOSKELETAL: No obvious deformities. No clubbing. No cyanosis. No edema. NEUROLOGICAL: Awake and alert. No obvious cranial nerve deficits. Motor grossly within normal limits. Normal speech. Data Data Last Documented VS Vital Signs Date Time Temp Pulse Resp B/P (MAP) Pulse Ox O2 Delivery O2 Flow Rate FiO2 10/20/17 19:49 101 24 99/50 (66) 97 Room Air 10/20/17 18:52 99.4 Orders Orders Complete Blood Count With Diff (10/20/17 19:07) Comprehensive Metabolic Panel (10/20/17 19:07) Lactic Acid Sepsis Protocol (10/20/17 19:07) Blood Culture (10/20/17 19:07) Ecg Monitoring (10/20/17 19:07) Iv Access Insert/Monitor (10/20/17 19:07) Oximetry (10/20/17 19:07) Oxygen Administration (10/20/17 19:07) Sodium Chlor 0.9% 1000 Ml Inj (Ns 1000 M (10/20/17 19:15) Sodium Chlor 0.9% 1000 Ml Inj (Ns 1000 M (10/20/17 19:15) Loperamide (Imodium) (10/20/17 19:15) Ondansetron Inj (Zofran Inj) (10/20/17 19:15) Dicyclomine Inj (Bentyl Inj) (10/20/17 19:15) Enteric Path (Stool) (10/20/17 19:07) C Diff Toxin Pcr (10/20/17 19:07) Metronidazole 500 Mg Inj (Flagyl 500 Mg (10/20/17 20:15) Ciprofloxacin 400 Mg Premix (Cipro 400 M (10/20/17 20:30) Metronidazole 500 Mg Inj (Flagyl 500 Mg (10/21/17 04:00) Admit To Inpatient (10/20/17 ) Vital Signs (Adult) Q4H (10/20/17 20:21) Activity Oob With Assistance (10/20/17 20:21) Sales Project Coordinator / Telemetry .CONTINUOUS (10/20/17 20:21) Intake + Output XOCHITL.QSHIFT (10/20/17 20:21) Diet Regular Basic (10/21/17 Breakfast) Sodium Chlor 0.9% 1000 Ml Inj (Ns 1000 M (10/20/17 20:21) Sodium Chloride 0.9% Flush (Ns Flush) (10/20/17 20:30) Sodium Chloride 0.9% Flush (Ns Flush) (10/20/17 21:00) Ondansetron Inj (Zofran Inj) (10/20/17 20:30) Comprehensive Metabolic Panel (10/21/17 06:00) Complete Blood Count With Diff (10/21/17 06:00) Scd Bilateral/Knee High XOCHITL.BID (10/20/17 20:21) [place]is Bilateral/Knee High XOCHITL.QSHIFT (10/20/17 20:24) Acetaminophen (Tylenol) (10/20/17 20:30) Acetamin-Hydrocod 325-5 Mg ([place] 5-325 (10/20/17 20:30) Acetamin-Hydrocod 325-10 Mg ([place] 10-32 (10/20/17 20:30) Docusate Sodium-Senna (Alison-Colace) (10/20/17 21:00) Magnesium Hydroxide Liq (Milk Of Magnesi (10/20/17 20:30) Sennosides (Senokot) (10/20/17 20:30) Bisacodyl Supp (Dulcolax Supp) (10/20/17 20:30) Lactulose Liq (Lactulose Liq) (10/20/17 20:30) Inpatient Certification (10/20/17 ) Admit Order (Ed Use Only) (10/20/17 ) Labs Laboratory Tests Test 10/20/17 19:15 White Blood Count 6.3 TH/MM3 Red Blood Count 4.62 MIL/MM3 Hemoglobin 12.6 GM/DL Hematocrit 38.8 % Mean Corpuscular Volume 83.8 FL Mean Corpuscular Hemoglobin 27.3 PG Mean Corpuscular Hemoglobin Concent 32.6 % Red Cell Distribution Width 14.2 % Platelet Count 247 TH/MM3 Mean Platelet Volume 9.1 FL Neutrophils (%) (Auto) 86.9 % Lymphocytes (%) (Auto) 7.4 % Monocytes (%) (Auto) 4.2 % Eosinophils (%) (Auto) 0.1 % Basophils (%) (Auto) 1.4 % Neutrophils # (Auto) 5.4 TH/MM3 Lymphocytes # (Auto) 0.5 TH/MM3 Monocytes # (Auto) 0.3 TH/MM3 Eosinophils # (Auto) 0.0 TH/MM3 Basophils # (Auto) 0.1 TH/MM3 CBC Comment DIFF FINAL Differential Comment Blood Urea Nitrogen 10 MG/DL Creatinine 0.85 MG/DL Random Glucose 107 MG/DL Total Protein 7.0 GM/DL Albumin 3.2 GM/DL Calcium Level 8.0 MG/DL Alkaline Phosphatase 146 U/L Aspartate Amino Transf (AST/SGOT) 62 U/L Alanine Aminotransferase (ALT/SGPT) 48 U/L Total Bilirubin 0.5 MG/DL Sodium Level 136 MEQ/L Potassium Level 3.7 MEQ/L Chloride Level 105 MEQ/L Carbon Dioxide Level 26.7 MEQ/L Anion Gap 4 MEQ/L Estimat Glomerular Filtration Rate 74 ML/MIN Lactic Acid Level 1.5 mmol/L MDM Medical Decision Making Medical Screen Exam Complete: Yes Emergency Medical Condition: Yes Interpretation(s) My review of EKG: Sinus tachycardia rate 102, normal axis, normal intervals, no acute ischemia. Differential Diagnosis Gastroenteritis, gastritis, enteritis, foodborne illness, C. difficile, sepsis, other Narrative Course Medical decision making 41-year-old woman with nausea vomiting copious watery diarrhea, appears dehydrated, hypotensive initially, subjective fevers and chills. Does not look toxic but looks a little bit unwell. Check lactate, blood cultures, stool cultures, give 2 L IV fluid bolus, symptomatic treatment, likely need admission. Diagnosis Primary Impression: Nausea vomiting and diarrhea Additional Impression: SIRS (systemic inflammatory response syndrome) Carlito Castellano MD Oct 20, 2017 19:51
[2017-10-20 19:52] LABS: ALT (GPT) 48 U/L (10-53); AST (GOT) 62 U/L (15-37); CREATININE 0.85 MG/DL (0.50-1.00); GLOMERULAR FILTRATION RATE 74 ML/MIN (>89)
[2017-10-20 19:54] LABS: TOTAL BILIRUBIN ADULT 0.5 MG/DL (0.2-1.0)
[2017-10-20 19:55] LABS: ALKALINE PHOSPHATASE 146 U/L (45-117)
[2017-10-20] MEDS ORDERED: metroNIDAZOLE 500 MG INJ 100 ML IV ONE (20:15)
[2017-10-20] MEDS ORDERED: LACTULOSE SYRUP 20 GM/30 ML CUP PO PRN (20:30)
[2017-10-20] MEDS ORDERED: ACETAMINOPHEN/HYDROcodone 325 MG/10 MG TAB PO PRN (20:30)
[2017-10-20] MEDS ORDERED: ACETAMINOPHEN/HYDROcodone 325 MG/5 MG TAB PO PRN (20:30)
[2017-10-20] MEDS ORDERED: MAGNESIUM HYDROXIDE SUSP 30 ML CUP PO PRN (20:30)
[2017-10-20] MEDS ORDERED: BISACODYL 10 MG SUPP RECTAL PRN (20:30)
[2017-10-20] MEDS ORDERED: SENNOSIDES 8.6 MG TAB PO PRN (20:30)
[2017-10-20] MEDS ORDERED: SODIUM CHLORIDE 0.9% FLUSH 10 ML FLUSH IV FLUSH PRN (20:30)
[2017-10-20] MEDS ORDERED: ACETAMINOPHEN 500 MG CPLT PO ONE (20:45)
[2017-10-20] MEDS ORDERED: PANTOPRAZOLE SODIUM 40 MG VIAL IV PUSH ONE (21:00)
[2017-10-20] MEDS: SODIUM CHLORIDE 0.9% FLUSH 10 ML FLUSH IV FLUSH SCH (21:10)
[2017-10-20] MEDS: DOCUSATE SODIUM 50 MG/SENNA 8.6 MG TAB PO SCH (21:10)
[2017-10-20] MEDS: CIPROFLOXACIN 400 MG PREMIX 200 ML IV SCH (22:08)
[2017-10-20] MEDS: ONDANSETRON HCL 4 MG/2 ML VIAL IVP PRN (23:11)
[2017-10-20] MEDS: SODIUM CHLOR 0.9% 1000 ML INJ 1,000 ML IV SCH (23:12)
[2017-10-21] VITALS (11 sets, daily range): BP systolic 75–110; BP diastolic 39–71; PULSE 83–106; RESP 12–29; TEMP 98.5–98.8; O2SAT 97–98
[2017-10-21] MEDS: ACETAMINOPHEN 325 MG TAB PO PRN ×2 (01:02→12:25)
[2017-10-21] MEDS: metroNIDAZOLE 500 MG INJ 100 ML IV SCH ×2 (05:27→12:25)
[2017-10-21 05:58] LABS: AUTOMATED NEUTROPHIL # 3.2 TH/MM3 (1.8-7.7); BASOPHIL % 0.2 % (0.0-2.0); EOSINOPHIL % 0.1 % (0.0-4.0); HEMATOCRIT 35.3 % (35.0-46.0); HEMOGLOBIN 11.1 GM/DL (11.6-15.3); LYMPH % 13.8 % (9.0-44.0); LYMPHOCYTE # 0.6 TH/MM3 (1.0-4.8); MEAN CELL VOLUME 83.2 FL (80.0-100.0); MEAN CORPUSCULAR HEMOGLOBIN 26.1 PG (27.0-34.0); MEAN CORPUSCULAR HGB CONC 31.4 % (32.0-36.0); MEAN PLATELET VOLUME 8.9 FL (7.0-11.0); MONO % 7.4 % (0.0-8.0); MONOCYTE # 0.3 TH/MM3 (0-0.9); NEUT % 78.5 % (16.0-70.0); PLATELET COUNT 244 TH/MM3 (150-450); RED BLOOD COUNT 4.25 MIL/MM3 (4.00-5.30); RED CELL DISTRIBUTION WIDTH 13.9 % (11.6-17.2); WHITE BLOOD COUNT 4.1 TH/MM3 (4.0-11.0)
[2017-10-21 06:07] LABS: CHLORIDE 110 MEQ/L (98-107); SODIUM (NA) 141 MEQ/L (136-145)
[2017-10-21 06:11] LABS: ALBUMIN 2.7 GM/DL (3.4-5.0); BICARBONATE 24.5 MEQ/L (21.0-32.0); CALCIUM 7.8 MG/DL (8.5-10.1)
[2017-10-21 06:12] LABS: BLOOD UREA NITROGEN 7 MG/DL (7-18); GLUCOSE,RANDOM 103 MG/DL (74-106)
[2017-10-21 06:15] LABS: ALT (GPT) 87 U/L (10-53); AST (GOT) 95 U/L (15-37); CREATININE 0.66 MG/DL (0.50-1.00); GLOMERULAR FILTRATION RATE 99 ML/MIN (>89)
[2017-10-21 06:16] LABS: TOTAL BILIRUBIN ADULT 0.6 MG/DL (0.2-1.0)
[2017-10-21 06:17] LABS: ALKALINE PHOSPHATASE 176 U/L (45-117)
[2017-10-21] MEDS ORDERED: SODIUM CHLOR 0.9% 1000 ML INJ 1,000 ML IV ONE (07:15)
[2017-10-21] MEDS: SODIUM CHLOR 0.9% 1000 ML INJ 1,000 ML IV SCH ×2 (07:38→16:38)
[2017-10-21] MEDS: CIPROFLOXACIN 400 MG PREMIX 200 ML IV SCH (07:42)
[2017-10-21] MEDS ORDERED: DIATRIZOATE MEGLUM/DIATRIZOATE SOD 9 ML CUP PO ONE (07:45)
[2017-10-21] MEDS: SODIUM CHLORIDE 0.9% FLUSH 10 ML FLUSH IV FLUSH SCH (07:50)
[2017-10-21] MEDS: DOCUSATE SODIUM 50 MG/SENNA 8.6 MG TAB PO SCH (07:51)
[2017-10-21] MEDS ORDERED: PANTOPRAZOLE SOD 40 MG DELAYED RELEASE TAB PO SCH (09:00)
--- NOTE | 2017-10-21 09:50 | HHI.HP ---
HPI Service [facility] Primary Care Physician No Primary Care Physician Admission Diagnosis Nausea vomiting diarrhea, rule out sepsis Diagnoses: Chief Complaint: Cramping, vomiting Travel History International Travel<30 Days: No Contact w/Intl Traveler <30 Da: No Traveled to Known Affected Are: No History of Present Illness 41-year-old female being admitted for intractable nausea vomiting diarrhea. Patient was in her usual state of health until 2 nights ago when she began experiencing abdominal cramping followed by nausea, dry heaving, and watery diarrhea that was nonbloody. She reports fevers and chills and had a temperature of 100.4 measured at home. She does report having some post emetic chest pain that ultimately prompted her to come to the emergency department. Patient says she took some Tylenol at home with relief of her fever symptoms but no relief of her diarrhea after taking some Imodium. She denies any sick contacts. Review of Systems Except as stated in HPI: all other systems reviewed are Neg Past Family Social History Past Medical History Bypass surgery, cholecystectomy, hospitalization for pneumonia, intubation as well as tracheostomy Allergies: Coded Allergies: Fish Containing Products (Verified Allergy, Severe, Anaphylaxis, 10/20/17) shellfish derived (Verified Allergy, Severe, Anaphylaxis, 10/20/17) shrimp (Verified Allergy, Severe, Anaphylaxis, 10/20/17) penicillin G (Verified Allergy, Unknown, CHILDHOOD ALLERGY, 10/20/17) clindamycin (Verified Adverse Reaction, Severe, RASH, 10/20/17) Family History Mother with COPD, father of cirrhosis Social History Lifelong history of smoking up until a few years ago, drinks very rarely Physical Exam Vital Signs Vital Signs Date Time Temp Pulse Resp B/P (MAP) Pulse Ox O2 Delivery O2 Flow Rate FiO2 10/21/17 04:11 98.8 94 19 84/61 (69) 10/21/17 04:08 92 19 75/39 (51) 10/21/17 04:03 92 19 76/42 (53) 10/21/17 03:02 104 19 97/48 (64) 10/21/17 02:02 106 29 98/58 (71) 10/21/17 01:01 98 27 105/63 (77) 98 10/21/17 00:05 100 10/21/17 00:05 100 21 92/63 (73) 10/21/17 00:00 100 10/21/17 00:00 100 12 76/42 (53) 10/20/17 22:59 100 10/20/17 22:59 99.7 100 83/42 (56) 95 10/20/17 22:33 10/20/17 22:29 99.6 110 22 100/52 (68) 95 Room Air 10/20/17 21:35 102 24 97/54 (68) 95 Room Air 10/20/17 21:06 100.4 97 97/52 (67) 98 10/20/17 20:33 102 80/48 (59) 95 Room Air 10/20/17 19:49 101 24 99/50 (66) 97 Room Air 10/20/17 18:52 99.4 104 24 110/61 (77) 98 Room Air 10/20/17 18:36 24 10/20/17 18:16 99.3 116 28 80/53 (62) 100 Physical Exam VS: afebrile GENERAL: Lying in bed, no acute distress, awake, alert SKIN: Warm and dry. EYES: No scleral icterus. No injection or drainage. ENT: No nasal bleeding or discharge. Mucous membranes pink and moist. CARDIOVASCULAR: Regular rate and rhythm. no murmurs RESPIRATORY: No accessory muscle use. Clear to auscultation. Breath sounds equal bilaterally. GASTROINTESTINAL: Abdomen soft, non-tender, nondistended. Obese habitus Extremities: No clubbing, cyanosis, or edema. No obvious deformities. MUSCULOSKELETAL: adequate muscle bulk and tone for age and habitus. Has obvious tenderness to palpation over the left pectoral region as well as over the left anterior shoulder where the patient says she was hurting at home over her chest NEUROLOGICAL: Awake and alert. No obvious cranial nerve deficits. No facial droop nor slurred speech noted. PSYCHIATRIC: Appropriate mood and affect; insight and judgment normal. Laboratory Laboratory Tests Test 10/20/17 19:15 10/21/17 05:38 White Blood Count 6.3 4.1 Red Blood Count 4.62 4.25 Hemoglobin 12.6 11.1 Hematocrit 38.8 35.3 Mean Corpuscular Volume 83.8 83.2 Mean Corpuscular Hemoglobin 27.3 26.1 Mean Corpuscular Hemoglobin Concent 32.6 31.4 Red Cell Distribution Width 14.2 13.9 Platelet Count 247 244 Mean Platelet Volume 9.1 8.9 Neutrophils (%) (Auto) 86.9 78.5 Lymphocytes (%) (Auto) 7.4 13.8 Monocytes (%) (Auto) 4.2 7.4 Eosinophils (%) (Auto) 0.1 0.1 Basophils (%) (Auto) 1.4 0.2 Neutrophils # (Auto) 5.4 3.2 Lymphocytes # (Auto) 0.5 0.6 Monocytes # (Auto) 0.3 0.3 Eosinophils # (Auto) 0.0 0.0 Basophils # (Auto) 0.1 0.0 CBC Comment DIFF FINAL DIFF FINAL Differential Comment Blood Urea Nitrogen 10 7 Creatinine 0.85 0.66 Random Glucose 107 103 Total Protein 7.0 6.0 Albumin 3.2 2.7 Calcium Level 8.0 7.8 Alkaline Phosphatase 146 176 Aspartate Amino Transf (AST/SGOT) 62 95 Alanine Aminotransferase (ALT/SGPT) 48 87 Total Bilirubin 0.5 0.6 Sodium Level 136 141 Potassium Level 3.7 3.6 Chloride Level 105 110 Carbon Dioxide Level 26.7 24.5 Anion Gap 4 7 Estimat Glomerular Filtration Rate 74 99 Lactic Acid Level 1.5 Date/Time Source Procedure Growth Status 10/20/17 19:17 Blood Peripheral Aerobic Blood Culture Pending Received 10/20/17 19:17 Blood Peripheral Anaerobic Blood Culture Pending Received Result Diagram: 10/21/17 0538 10/21/17 0538 Caprini VTE Risk Assessment Caprini VTE Risk Assessment: No/Low Risk (score <= 1) Caprini Risk Assessment Model Point Value = 1 Point Value = 2 Point Value = 3 Point Value = 5 Age 41-60 Minor surgery BMI > 25 kg/m2 Swollen legs Varicose veins or History of unexplained or recurrent spontaneous Oral contraceptives or hormone replacement Sepsis (< 1 month) Serious lung disease, including pneumonia (< 1 month) Abnormal pulmonary function Acute myocardial infarction Congestive heart failure (< 1 month) History of inflammatory bowel disease Medical patient at bed rest Age 61-74 Arthroscopic surgery Major open surgery (> 45 min) Laparoscopic surgery (> 45 min) Malignancy Confined to bed (> 72 hours) Immobilizing plaster cast Central venous access Age >= 75 History of VTE Family history of VTE Factor V Leiden Prothrombin [id number] Lupus anticoagulant Anticardiolipin antibodies Elevated serum homocysteine Heparin-induced thrombocytopenia Other congenital or acquired thrombophilia Stroke (< 1 month) Elective arthroplasty Hip, pelvis, or leg fracture Acute spinal cord injury (< 1 month) Prophylaxis Regimen Total Risk Factor Score Risk Level Prophylaxis Regimen 0-1 Low Early ambulation 2 Moderate Order ONE of the following: *Sequential Compression Device (SCD) *Heparin 5000 units SQ BID 3-4 Higher Order ONE of the following medications: *Heparin 5000 units SQ TID *Enoxaparin/Lovenox 40 mg SQ daily (WT < 150 kg, CrCl > 30 mL/min) *Enoxaparin/Lovenox 30 mg SQ daily (WT < 150 kg, CrCl > 10-29 mL/min) *Enoxaparin/Lovenox 30 mg SQ BID (WT < 150 kg, CrCl > 30 mL/min) AND/OR *Sequential Compression Device (SCD) 5 or more Highest Order ONE of the following medications: *Heparin 5000 units SQ TID (Preferred with Epidurals) *Enoxaparin/Lovenox 40 mg SQ daily (WT < 150 kg, CrCl > 30 mL/min) *Enoxaparin/Lovenox 30 mg SQ daily (WT < 150 kg, CrCl > 10-29 mL/min) *Enoxaparin/Lovenox 30 mg SQ BID (WT < 150 kg, CrCl > 30 mL/min) AND *Sequential Compression Device (SCD) Assessment and Plan Assessment and Plan 41-year-old female admitted for possible sepsis with intractable diarrhea Possible sepsis -Tachycardia with a fever of 100.4 and diarrhea suggesting a GI etiology -Blood cultures pending, IV fluids Diarrhea -Suspect viral gastroenteritis as the patient's symptoms are already improving, has not had diarrhea since last night at 10 PM, canceling CT scan, already drank one bottle of contrast so I suspect that the next round of diarrhea will actually be from the contrast. Ordering a C. difficile PCR specimen Nausea vomiting abdominal cramping -Likely viral gastroenteritis, much improved since admission, Zofran if needed, tolerating p.o. intake well this morning Elevated LFTs -Climbing based upon current trend, likely from fatty liver and acute viral AGE insult, trend for improvement with IV fluids Clear liquid diet as tolerated SCDs Addendum: Low BPs readings were from automatic cuff; pt asymptomatic. Manual cuff showed SBP > 100. pt tolerated po intake well. c diff neg. diarrhea much improved, tolerating po intake. Remained afebrile. likely viral AGE. Pt has met maximal benefit from hospitalization and is clinically stable for discharge. Pt was counseled to gently advance diet as tolerated. Physician Certification 2 Midnight Certification Type: Admission for Inpatient Services Order for Inpatient Services The services are ordered in accordance with Medicare regulations or non- Medicare payer requirements, as applicable. In the case of services not specified as inpatient-only, they are appropriately provided as inpatient services in accordance with the 2-midnight benchmark. Estimated LOS (days): 2 2 days is the estimated time the patient will need to remain in the hospital, assuming treatment plan goals are met and no additional complications. Post-Hospital Plan: Home Hal Hill MD Oct 21, 2017 09:50
[2017-10-21] MEDS: ONDANSETRON HCL 4 MG/2 ML VIAL IVP PRN (10:36)
--- NOTE | 2017-10-21 14:02 | EKG ---
Date Performed: 10/20/2017 Time Performed: 18:06:26 PTAGE: 41 years EKG: SINUS TACHYCARDIA POSSIBLE LEFT ATRIAL ENLARGEMENT ABNORMAL RHYTHM ECG PREVIOUS TRACING : 06/22/2016 19.58 Since the previous tracing, no significant change noted DOCTOR: Lew Calhoun Interpretating Date/Time 10/21/2017 14:01:44
--- NOTE | 2017-10-21 15:39 | HHI.DCPOC ---
Discharge Care Plan Diagnosis: (1) Viral gastroenteritis Goals to Promote Your Health * To prevent worsening of your condition and complications * To maintain your health at the optimal level Directions to Meet Your Goals Take your medications as prescribed Follow your dietary instruction Follow activity as directed Keep your appointments as scheduled Take your immunizations and boosters as scheduled If your symptoms worsen call your PCP, if no PCP go to Urgent Care Center or Emergency Room Smoking is Dangerous to Your Health. Avoid second hand smoke Call the 24-hour hour crisis hotline for domestic abuse at Hal Hill MD Oct 21, 2017 15:39
[2017-10-21 16:30] LABS: CHLORIDE 111 MEQ/L (98-107); SODIUM (NA) 141 MEQ/L (136-145)
[2017-10-21 16:33] LABS: ALBUMIN 2.7 GM/DL (3.4-5.0); BICARBONATE 23.6 MEQ/L (21.0-32.0); CALCIUM 7.9 MG/DL (8.5-10.1)
[2017-10-21 16:34] LABS: BLOOD UREA NITROGEN 6 MG/DL (7-18); GLUCOSE,RANDOM 114 MG/DL (74-106)
[2017-10-21 16:37] LABS: ALT (GPT) 75 U/L (10-53); AST (GOT) 50 U/L (15-37); GLOMERULAR FILTRATION RATE 92 ML/MIN (>89)
[2017-10-21 16:38] LABS: TOTAL BILIRUBIN ADULT 0.2 MG/DL (0.2-1.0)
[2017-10-21 16:39] LABS: ALKALINE PHOSPHATASE 162 U/L (45-117)
[2017-10-21] MEDS ORDERED: ZOFR4TAB3 SL (17:16)
== END 2017-10-21 18:49 | disposition home or self-care (01) | DRG 392 ==
LOC: PHED 18:00 → PHEDA 20:25 → PHICU 22:39
PROVIDERS: ADMIT Hospitalist; ATTEND Hospitalist
DX: A08.4 Viral intestinal infection, unspecified (principal); R00.0 Tachycardia, unspecified; Z87.891 Personal history of nicotine dependence; Z98.84 Bariatric surgery status
CPT/HCPCS: 80053; 83605; 85025; 87040; 87425; 87493; 93005; 96361; 96372; 96374; C9113; J0500; J0744; J2405; J7030; Q9963

== ENCOUNTER 2018-01-15 07:51 | Emergency (ER) | payer MEDICAID ==
[~2018-01-15] VITALS: Ht 157.5 cm; Wt 113.0 kg
[~2018-01-15 07:51] MED LIST changes: +ZOFR4TAB3 SL
[2018-01-15 07:56] VITALS: BP 101/59; PULSE 89; RESP 20; TEMP 98.4; O2SAT 98
--- NOTE | 2018-01-15 08:03 | PD ---
HPI Chief Complaint: Flank/Kidney Pain Time Seen by Provider: 08:02 Travel History International Travel<30 days: No Contact w/Intl Traveler<30days: No Traveled to known affect area: No History of Present Illness HPI 42-year-old female came to the emergency room with history of left flank pain that is now radiating to both sides for past week and a half. Patient says that she went to see her primary care who did a urine analysis in the office and noticed some blood. She was given a medication to "break the stones" by her primary care which she had to take once a day. Patient says that has not helped and the pain has worsened. She does have history of kidney stones. She drove herself to the hospital today and looks uncomfortable. Pain is 8 out of 10. It is a dull ache. No aggravating or relieving factors identified. Vital signs otherwise stable. Patient has been in the emergency room multiple times in the past and has received multiple CAT scans of her abdomen and pelvis. The last one being in July of this year which was negative for any significant abnormalities. She has been nauseous but no vomiting. [facility] Past Medical History Narrative Medical List of her past medical, surgical, social and family history reviewed from the nursing note Anemia: Yes Arthritis: No Asthma: Yes Autoimmune Disease: No Blood Disorders: No Anxiety: No Depression: Yes Heart Rhythm Problems: No Cancer: No Cardiovascular Problems: No High Cholesterol: No Chemotherapy: No Chest Pain: No Congestive Heart Failure: No COPD: Yes Cerebrovascular Accident: No Diminished Hearing: No Endocrine: No Gastrointestinal Disorders: Yes GERD: Yes Glaucoma: No Genitourinary: Yes Headaches: Yes Hepatitis: No Hiatal Hernia: No Hypertension: No Immune Disorder: No Implanted Vascular Access Dvce: No Kidney Stones: No Musculoskeletal: Yes ( CARPAL TUNNEL RT. WRIST/HAND) Neurologic: Yes Psychiatric: Yes Reproductive: No Respiratory: Yes (COPD) Immunizations Current: Yes Migraines: No Myocardial Infarction: No Pneumonia: Yes Radiation Therapy: No Renal Failure: No Seizures: No Sickle Cell Disease: No Sleep Apnea: No Thyroid Disease: No Ulcer: No ?: Not LMP: "Last month sometime I'm not sure"/Tubal Menopausal: No : 3 Para: 2 Miscarriage: 1 Dilation and Curettage (D&C): Yes Tubal Ligation: Yes Past Surgical History Abdominal Surgery: Yes ( INFECTION REMOVED AROUND SPLEEN with drain, inc hernia repair) AICD: No Appendectomy: No Arteriovenous Shunt: No Cardiac Surgery: No Section: Yes (X 2) Cholecystectomy: Yes Ear Surgery: No Endocrine Surgery: No Eye Surgery: No Genitourinary Surgery: No Gynecologic Surgery: Yes (TUBAL LIGATION; D/C; X2) Insulin Pump: No Joint Replacement: No Neurologic Surgery: No Oral Surgery: Yes (TONSILLECTOMY) Pacemaker: No Tonsillectomy: Yes Other Surgery: Yes (On vent 2.5 mos had trach) Social History Alcohol Use: Yes (RARE) Tobacco Use: Yes (VAPOR) Substance Use: No Allergies-Medications (Allergen,Severity, Reaction): Coded Allergies: Fish Containing Products (Verified Allergy, Severe, Anaphylaxis, 10/20/17) shellfish derived (Verified Allergy, Severe, Anaphylaxis, 10/20/17) shrimp (Verified Allergy, Severe, Anaphylaxis, 10/20/17) penicillin G (Verified Allergy, Unknown, CHILDHOOD ALLERGY, 10/20/17) clindamycin (Verified Adverse Reaction, Severe, RASH, 10/20/17) Comments List of her allergies reviewed from the nursing note. Reported Meds & Prescriptions Reported Meds & Active Scripts Active Macrobid (Nitrofurantoin Monoh/Nitrofur Macro) 100 Mg Cap 100 Mg PO BID 10 Days Colace (Docusate Sodium) 100 Mg Capsule 100 Mg PO BID Hydrocodone-Acetaminophen 5-325 mg Tab 1 Tab PO Q6H PRN Zofran Odt (Ondansetron Odt) 4 Mg Tab 4 Mg SL Q6HR PRN Nystatin Topical (Nystatin) 100,000 unit/gm Cream 1 Applic TOPICAL BID Narrative Medication List of her home medications reviewed from the nursing note. Review of Systems Except as stated in HPI: all other systems reviewed are Neg Genitourinary: Positive: Flank Pain Musculoskeletal: Positive: Pain Physical Exam Narrative GENERAL: Awake, alert, anxious, moderate distress, obese SKIN: Focused skin assessment warm/dry. HEAD: Atraumatic. Normocephalic. EYES: Pupils equal and round. No scleral icterus. No injection or drainage. ENT: No nasal bleeding or discharge. Mucous membranes pink and moist. NECK: Trachea midline. No JVD. CARDIOVASCULAR: Regular rate and rhythm. No murmur appreciated. RESPIRATORY: No accessory muscle use. Clear to auscultation. Breath sounds equal bilaterally. GASTROINTESTINAL: Abdomen soft, non-tender, nondistended. Hepatic and splenic margins not palpable. MUSCULOSKELETAL: No obvious deformities. No clubbing. No cyanosis. No edema. NEUROLOGICAL: Awake and alert. No obvious cranial nerve deficits. Motor grossly within normal limits. Normal speech. PSYCHIATRIC: Appropriate mood and affect; insight and judgment normal. Data Data Last Documented VS Vital Signs Date Time Temp Pulse Resp B/P (MAP) Pulse Ox O2 Delivery O2 Flow Rate FiO2 01/15/18 10:00 18 01/15/18 09:56 01/15/18 09:47 80 98 Room Air 01/15/18 08:18 98.4 Orders Orders Urinalysis - C+S If Indicated (01/15/18 08:01) Ed Urine Pregnancytest Poc (01/15/18 08:01) Complete Blood Count With Diff (01/15/18 08:07) Basic Metabolic Panel (Bmp) (01/15/18 08:07) Ct Abd/Pel W/O Iv Contrast (01/15/18 08:07) Ecg Monitoring (01/15/18 08:07) Iv Access Insert/Monitor (01/15/18 08:07) Ketorolac Inj (Toradol Inj) (01/15/18 08:15) Sodium Chloride 0.9% Flush (Ns Flush) (01/15/18 08:15) Sodium Chlor 0.9% 1000 Ml Inj (Ns 1000 M (01/15/18 08:07) Urine Culture (01/15/18 08:35) Nitrofurantoin Monohyd Macrocr (Macrobid (01/15/18 09:00) Ed Discharge Order (01/15/18 09:26) Labs Laboratory Tests Test 01/15/18 08:35 White Blood Count 9.4 TH/MM3 Red Blood Count 4.26 MIL/MM3 Hemoglobin 12.1 GM/DL Hematocrit 37.0 % Mean Corpuscular Volume 86.7 FL Mean Corpuscular Hemoglobin 28.4 PG Mean Corpuscular Hemoglobin Concent 32.7 % Red Cell Distribution Width 13.6 % Platelet Count 306 TH/MM3 Mean Platelet Volume 8.7 FL Neutrophils (%) (Auto) 77.4 % Lymphocytes (%) (Auto) 15.9 % Monocytes (%) (Auto) 4.9 % Eosinophils (%) (Auto) 1.3 % Basophils (%) (Auto) 0.5 % Neutrophils # (Auto) 7.3 TH/MM3 Lymphocytes # (Auto) 1.5 TH/MM3 Monocytes # (Auto) 0.5 TH/MM3 Eosinophils # (Auto) 0.1 TH/MM3 Basophils # (Auto) 0.0 TH/MM3 CBC Comment DIFF FINAL Differential Comment Urine Collection Type CLEAN CATCH Urine Color YELLOW Urine Turbidity CLOUDY Urine pH 6.0 Urine Specific [place] GREATER/EQUAL 1.030 Urine Protein 30 mg/dL Urine Glucose (UA) NEG mg/dL Urine Ketones NEG mg/dL Urine Occult Blood LARGE Urine Nitrite NEG Urine Bilirubin NEG Urine Urobilinogen 0.2 MG/DL Urine Leukocyte Esterase LARGE Urine RBC 4-9 /hpf Urine WBC INNUM /hpf Microscopic Urinalysis Comment CULTURE INDICATED Blood Urea Nitrogen 11 MG/DL Creatinine 0.88 MG/DL Random Glucose 123 MG/DL Calcium Level 8.4 MG/DL Sodium Level 138 MEQ/L Potassium Level 3.7 MEQ/L Chloride Level 107 MEQ/L Carbon Dioxide Level 22.0 MEQ/L Anion Gap 9 MEQ/L Estimat Glomerular Filtration Rate 70 ML/MIN [facility] Medical Decision Making Medical Screen Exam Complete: Yes Emergency Medical Condition: Yes Medical Record Reviewed: Yes Differential Diagnosis Ureteral colic, pyelonephritis, musculoskeletal pain Narrative Course 9:34 AM patient was ordered for Toradol but she refused to take it since she has had gastric bypass surgery and was told not to take NSAIDs. Blood test results are back and within normal limit. UA suggestive of UTI. She was given a dose of Macrobid. The CAT scan was just resulted and as per the radiologist no ureteral calculus noticed. Patient does have a 4.3 cm left adnexal mass. I discussed these findings with the patient and asked her to follow-up with a [facility] or her primary care to get an outpatient pelvic ultrasound plus/minus an MRI of the pelvis. At this point patient says that she has an appointment to get a mammogram done of her breast because her primary care found 2 nodules in her breasts. Patient will get a copy of the CAT scan with the abnormal finding highlighted which she needs to take to her primary care as per my instructions. Patient understands these verbal instructions. She will be discharged home. Procedures EKG Prior to Arrival: No Diagnosis Primary Impression: Acute on chronic flank pain Additional Impressions: Adnexal mass UTI (urinary tract infection) Qualified Codes: N39.0 - Urinary tract infection, site not specified Additional Instructions: Please take the medication as per the prescription direction. Follow-up with your primary care as soon as possible. Take the copy of the CAT scan that has been provided to you from the emergency room. As per my instructions your primary care should order an outpatient pelvic ultrasound plus/minus pelvic MRI with and without contrast to further define the pelvic mass that has been found on her CAT scan. Return to the emergency room if condition worsens any other new concerns. Take the medication as per the prescription direction. The pain medication may make you constipated and hence laxative prescription has also been provided which he should take along with it. Med/Other Pt SpecificInfo: Prescription(s) given Scripts Nitrofurantoin Monohydrate Macrocrystals (Macrobid) 100 Mg Cap 100 MG PO BID for Infection for 10 Days, #20 CAP 0 Refills Prov: Deepthi Schmidt MD 01/15/18 Docusate Sodium (Colace) 100 Mg Capsule 100 MG PO BID for Prevent Constipation, #14 CAP 0 Refills Prov: Deepthi Schmidt MD 01/15/18 Hydrocodone-Acetaminophen (Hydrocodone-Acetaminophen) 5-325 mg Tab 1 TAB PO Q6H Y for PAIN, #10 TAB 0 Refills Prov: Deepthi Schmidt MD 01/15/18 Disposition: 01 DISCHARGE HOME Condition: Stable Deepthi Schmidt MD Jan 15, 2018 08:03
[2018-01-15] MEDS ORDERED: SODIUM CHLOR 0.9% 1000 ML INJ 1,000 ML IV ONE (08:07)
[2018-01-15] MEDS ORDERED: SODIUM CHLORIDE 0.9% FLUSH 10 ML FLUSH IVF PRN (08:15)
[2018-01-15] MEDS ORDERED: KETOROLAC TROMETHAMINE 30 MG/ML (IVP) VIAL IV PUSH ONE (08:15)
[2018-01-15 08:18] VITALS: PULSE 84; RESP 16; TEMP 98.4
[2018-01-15 08:42] LABS: AUTOMATED NEUTROPHIL # 7.3 TH/MM3 (1.8-7.7); BASOPHIL % 0.5 % (0.0-2.0); EOSINOPHIL # 0.1 TH/MM3 (0-0.4); EOSINOPHIL % 1.3 % (0.0-4.0); HEMOGLOBIN 12.1 GM/DL (11.6-15.3); LYMPH % 15.9 % (9.0-44.0); LYMPHOCYTE # 1.5 TH/MM3 (1.0-4.8); MEAN CELL VOLUME 86.7 FL (80.0-100.0); MEAN CORPUSCULAR HEMOGLOBIN 28.4 PG (27.0-34.0); MEAN CORPUSCULAR HGB CONC 32.7 % (32.0-36.0); MEAN PLATELET VOLUME 8.7 FL (7.0-11.0); MONO % 4.9 % (0.0-8.0); MONOCYTE # 0.5 TH/MM3 (0-0.9); NEUT % 77.4 % (16.0-70.0); PLATELET COUNT 306 TH/MM3 (150-450); RED BLOOD COUNT 4.26 MIL/MM3 (4.00-5.30); RED CELL DISTRIBUTION WIDTH 13.6 % (11.6-17.2); WHITE BLOOD COUNT 9.4 TH/MM3 (4.0-11.0)
[2018-01-15 08:43] LABS: BILIRUBIN, URINE NEG (NEG); BLOOD, URINE LARGE (NEG); GLUCOSE,URINE NEG (NEG); KETONE, URINE NEG (NEG); NITRITE,URINE NEG (NEG); URINE COLOR YELLOW (YELLW/STRAW); URINE LEUKOCYTE ESTERASE LARGE (NEG)
[2018-01-15 08:48] LABS: WBC, URINE INNUM /hpf (0-5)
[2018-01-15 08:55] LABS: CALCIUM 8.4 MG/DL (8.5-10.1)
[2018-01-15 08:59] LABS: CREATININE 0.88 MG/DL (0.50-1.00)
[2018-01-15] MEDS ORDERED: NITROFURANTOIN MONOHYD MACROCR 100 MG CAP PO ONE (09:00)
--- NOTE | 2018-01-15 09:18 | RADRPT ---
EXAM DATE: 01/15/2018 9:09 AM EDT AGE/SEX: 42 years / Female INDICATIONS: Bilateral flank pain. CLINICAL DATA: This is the patient's initial encounter. Patient reports that signs and symptoms have been present for 2 weeks and indicates a pain score of 6/10. MEDICAL/SURGICAL HISTORY: . Gastroesophageal reflux disease. Chronic obstructive pulmonary dise ase. . Cholecystectomy. Tubal ligation. RADIATION DOSE: 23.96 CTDI (mGy) [place] [facility] [place] 10/[place]/2011. . TECHNIQUE: Multiple contiguous axial images were obtained through the abdomen. Images were obtained using multiple row detector helical technique. Using dose reduction techniques, radiation dose was ke pt as low as reasonably achievable to obtain optimal diagnostic quality images. FINDINGS: The lower lungs are clear. Liver is free of focal defects. Surgical clips gallbladder fossa Spleen is unremarkable Previous gastric surgery is evident Pancreas appears normal Adrenal glands appear normal Right kidney: There are no calcifications the right kidney. There are no cascades along the expected course of the right ureter. Left kidney: There are no calcifications in the left kidney. No calcifications along the expected cou rse of the left ureter. In the pelvis scattered phleboliths are present but I think these are beyond the confines of the uret er. 4.3 cm left adnexal mass. Right adnexa is unremarkable Uterus appears normal And is no free fluid Review of bone windows reveals degenerative changes in the lower lumbar spine. CONCLUSION: 1. I do not see evidence for renal stone or obstruction. Source of the bilateral flank pain is not i dentified 2. On nephritis would be difficult to exclude without contrast 3. Evidence for previous gastric surgery 4. Cystic mass 4.3 cm left adnexa region. Electronically signed by: Arturo Mcnally MD 01/15/2018 9:16 AM EDT
[2018-01-15 09:26] VITALS: BP 85/45; PULSE 84; RESP 18; O2SAT 97
[2018-01-15] MEDS ORDERED: COLA100C5 PO (09:39)
[2018-01-15] MEDS ORDERED: MACR100C2 PO (09:39)
[2018-01-15] MEDS ORDERED: HYDR-3516 PO (09:39)
[2018-01-15 09:47] VITALS: BP 86/56; PULSE 80; RESP 16; O2SAT 98
[2018-01-15 10:00] VITALS: RESP 18
== END 2018-01-15 09:59 | disposition home or self-care (01) ==
LOC: PHED 07:51
DX: N39.0 Urinary tract infection, site not specified (principal); B96.89 Other specified bacterial agents as the cause of diseases classified elsewhere; R19.00 Intra-abdominal and pelvic swelling, mass and lump, unspecified site; R11.0 Nausea; D64.9 Anemia, unspecified; F32.9 Major depressive disorder, single episode, unspecified; J44.9 Chronic obstructive pulmonary disease, unspecified; K21.9 Gastro-esophageal reflux disease without esophagitis; Z87.442 Personal history of urinary calculi; Z88.0 Allergy status to penicillin
CPT/HCPCS: 74176; 80048; 81001; 84703; 85025; 87086; 96361; 96374; 99284; J1885; J7030

== ENCOUNTER 2018-03-19 21:23 | Observation (INO) ==
[2018-03-19 22:21] LABS: Baso % (Auto) 0.4 % (0.0-2.0); Eos # (Auto) 0.1 th/mm3 (0.0-0.4); Eos % (Auto) 1.5 % (0.0-4.0); Hematocrit 35.2 % (35.0-46.0); Hemoglobin 11.9 gm/dL (11.6-15.3); Lymph # (Auto) 1.8 th/mm3 (1.0-4.8); Lymph % (Auto) 26.4 % (9.0-44.0); Mean Corpuscular HGB Conc 33.8 % (32.0-36.0); Mean Corpuscular Hemoglobin 28.3 pg (27.0-34.0); Mean Corpuscular Volume 83.8 fL (80.0-100.0); Mean Platelet Volume 9.1 fL (7.0-11.0); Mono # (Auto) 0.7 th/mm3 (0.0-0.9); Mono % (Auto) 10.6 % (0.0-8.0); Neut % (Auto) 61.1 % (16.0-70.0); Platelet Count 276 th/mm3 (150-450); Red Cell Distribution Width 13.6 % (11.6-17.2); White Blood Count 6.6 th/mm3 (4.0-11.0)
[2018-03-19 22:29] LABS: Chloride 110 meq/L (98-107); Sodium 141 meq/L (136-145)
[2018-03-19 22:32] LABS: Calcium 8.4 mg/dL (8.5-10.1)
[2018-03-19 22:33] LABS: Albumin 3.3 g/dL (3.4-5.0); Anion Gap 5 meq/L (5-15); Blood Urea Nitrogen 15 mg/dL (7-18); Carbon Dioxide 25.6 meq/L (21.0-32.0); Glucose,Random 91 mg/dL (74-106); Lipase 121 U/L (73-393); Magnesium 2.2 mg/dL (1.5-2.5)
[2018-03-19 22:34] LABS: Activated Partial Thrombo Time 26.6 sec (24.3-30.1)
[2018-03-19 22:36] LABS: Alanine Aminotransferase 39 U/L (10-53); Aspartate Aminotransferase 15 U/L (15-37); Glomerular Filtration Rate 70 mL/min (>89)
[2018-03-19 22:38] LABS: Alkaline Phosphatase 143 U/L (45-117)
--- NOTE | 2018-03-19 22:42 | XR ---
EXAM DATE: 03/19/2018 10:21 PM EDT AGE/SEX: 42 years / Female INDICATIONS: Chest pain. CLINICAL DATA: This is the patient's initial encounter. Patient reports that signs and symptoms have been present for 1 day and indicates a pain score of 7/10. MEDICAL/SURGICAL HISTORY: None. None. COMPARISON: [facility], CHEST SINGLE AP, 05/02/2017. . FINDINGS: The heart size is normal. There is linear density at the left base. The lungs are otherwise clear. No effusion is seen. CONCLUSION: Near density at the left base likely related to scarring or atelectasis. Electronically signed by: Jordi King MD 03/19/2018 10:41 PM EDT
[2018-03-19 22:47] LABS: Creatine Kinase 52 U/L (26-192)
--- NOTE | 2018-03-19 22:54 | ED ---
HPI General Chief Complaint: Chest Pain Stated Complaint: chest pain Source: patient Mode of arrival: ambulatory Limitations: no limitations History of Present Illness HPI narrative: Patient is a 42-year-old female who presents to the emergency room with complaints of chest pain. Patient reports that she was watching TV 30 minutes before coming to the emergency room began to have a dull ache to her left chest. Patient reports a dull ache radiating down her left arm, denies any shortness of breath or diaphoresis with her symptoms, she does feel little nauseous with no vomiting. Reports that she has been having intermittent palpitations for the past week, she has no cardiac history. Reports only history of gastric bypass surgery. Denies any recent travels/trips. No recent immobilization. No history of cardiac chest pain in the past. Patient with no history of diabetes, hypertension or hyperlipidemia. MD complaint: chest pain Complete Quality Measures for STEMI Alert Patients STEMI Alert: No Related Data Home Medications Medication Instructions Recorded Confirmed No Known Home Medications 03/19/18 03/19/18 Allergies Allergy/AdvReac Type Severity Reaction Status Date / Time Fish Containing Products Allergy Severe Anaphylaxis Verified 03/19/18 21:52 shellfish derived Allergy Severe Anaphylaxis Verified 03/19/18 21:52 shrimp Allergy Severe Anaphylaxis Verified 03/19/18 21:52 penicillin G Allergy Unknown CHILDHOOD Verified 03/19/18 21:52 ALLERGY clindamycin AdvReac Severe RASH Verified 03/19/18 21:52 Review of Systems ROS: all other systems reviewed are negative [facility] Medical History Medical History History of asthma (Acute) Surgical History Surgical History Hx of section (Acute) Hx of cholecystectomy (Acute) Hx of gastric bypass (Acute) Hx of tonsillectomy (Acute) Social History Social History Substance History: No History of Abuse Second Hand Smoke Exposure: Yes Smoking Status: Current some day smoker Tobacco Type: E-Cigarettes How Often Do You Have a Drink Containing Alcohol: Monthly or less Recent Travel in [facility] within the Last 8 Weeks: No Recent Out of Country Travel within the Last 8 Weeks: No Immunization History Tetanus Immunization: Unsure Hx Influenza Vaccine This Season: No Exam Narrative Exam Narrative: GENERAL: Mild distress SKIN: Focused skin assessment warm/dry. HEAD: Atraumatic. Normocephalic. EYES: Pupils equal and round. No scleral icterus. No injection or drainage. ENT: No nasal bleeding or discharge. Mucous membranes pink and moist. NECK: Trachea midline. No JVD. CARDIOVASCULAR: Regular rate and rhythm. No murmur appreciated. RESPIRATORY: No accessory muscle use. Clear to auscultation. Breath sounds equal bilaterally. GASTROINTESTINAL: Abdomen soft, non-tender, nondistended. Hepatic and splenic margins not palpable. MUSCULOSKELETAL: No obvious deformities. No clubbing. No cyanosis. No edema. NEUROLOGICAL: Awake and alert. No obvious cranial nerve deficits. Motor grossly within normal limits. Normal speech. PSYCHIATRIC: Appropriate mood and affect; insight and judgment normal. Course Initial Documented Vital Signs Pulse Rate 72 03/19/18 21:51 Respiratory Rate 18 03/19/18 21:51 Blood Pressure 99/67 L 03/19/18 21:51 Pulse Oximetry 99 03/19/18 21:51 Last Documented Vital Signs Temperature 98.9 F 03/19/18 21:52 Pulse Rate 72 03/19/18 21:58 Respiratory Rate 18 03/19/18 21:58 Blood Pressure 103/73 03/19/18 21:58 Pulse Oximetry 99 03/19/18 21:58 Medical Decision Making MDM Narrative Medical decision making narrative: During the course of the patients emergency department visit, the patients history, examination, and differential diagnosis were reviewed with the patient. The patient was placed on a ekg monitor tech with oximetry and frequent blood pressure monitoring. The patient had an IV access obtained and blood work sent for analysis. The patient was initially provided aspirin as well as nitro SL Labs and studies were reviewed- plan to obs in the chest pain unit case reviewed with medicine service, will obs to chest pain unit Medical Screen Exam Complete: Yes Emergency Medical Condition: Yes Differential Diagnosis Differential Diagnosis: ACS, arrhythmia, PE, electrolyte abnormality, pneumothorax, costochondritis Medical Records Medical records reviewed: Yes I reviewed the patient's medical records. Lab Data Lab results reviewed: Yes I reviewed the patient's lab results. Result diagrams: 03/19/18 22:15 03/19/18 22:15 POC Results POC Urine Results Negative Lab Results 03/19/18 03/19/18 03/19/18 Range/Units 22:15 22:15 22:15 CBC w Diff Auto diff final WBC 6.6 (4.0-11.0) th/mm3 RBC 4.20 (4.00-5.30) mil/mm3 Hgb 11.9 (11.6-15.3) gm/dL Hct 35.2 (35.0-46.0) % MCV 83.8 (80.0-100.0) fL MCH 28.3 (27.0-34.0) pg MCHC 33.8 (32.0-36.0) % RDW 13.6 (11.6-17.2) % Plt Count 276 (150-450) th/mm3 MPV 9.1 (7.0-11.0) fL Neut % (Auto) 61.1 (16.0-70.0) % Lymph % (Auto) 26.4 (9.0-44.0) % [place] % (Auto) 10.6 H (0.0-8.0) % Eos % (Auto) 1.5 (0.0-4.0) % Baso % (Auto) 0.4 (0.0-2.0) % Neut # (Auto) 4.0 (1.8-7.7) th/mm3 Lymph # (Auto) 1.8 (1.0-4.8) th/mm3 [place] # (Auto) 0.7 (0.0-0.9) th/mm3 Eos # (Auto) 0.1 (0.0-0.4) th/mm3 Baso # (Auto) 0.0 (0.0-0.2) th/mm3 WBC Differential . Differential Comment . PT 10.0 (9.8-11.6) sec INR 1.0 Ratio APTT 26.6 (24.3-30.1) sec Sodium 141 (136-145) meq/L Potassium 4.0 (3.5-5.1) meq/L Chloride 110 H (98-107) meq/L Carbon Dioxide 25.6 (21.0-32.0) meq/L Anion Gap 5 (5-15) meq/L BUN 15 (7-18) mg/dL Creatinine 0.89 (0.50-1.00) mg/dL Estimated GFR 70 L (>89) mL/min Random Glucose 91 (74-106) mg/dL Calcium 8.4 L (8.5-10.1) mg/dL Magnesium 2.2 (1.5-2.5) mg/dL Total Bilirubin 0.1 L (0.2-1.0) mg/dL AST 15 (15-37) U/L ALT 39 (10-53) U/L Alkaline Phosphatase 143 H (45-117) U/L Total Creatine Kinase 52 (26-192) U/L Troponin I Less than 0.02 L (0.02-0.05) ng/mL B-Natriuretic Peptide (0-100) pg/mL Total Protein 7.0 (6.4-8.2) g/dL Albumin 3.3 L (3.4-5.0) g/dL Lipase 121 (73-393) U/L 03/19/18 Range/Units 22:15 CBC w Diff WBC (4.0-11.0) th/mm3 RBC (4.00-5.30) mil/mm3 Hgb (11.6-15.3) gm/dL Hct (35.0-46.0) % MCV (80.0-100.0) fL MCH (27.0-34.0) pg MCHC (32.0-36.0) % RDW (11.6-17.2) % Plt Count (150-450) th/mm3 MPV (7.0-11.0) fL Neut % (Auto) (16.0-70.0) % Lymph % (Auto) (9.0-44.0) % [place] % (Auto) (0.0-8.0) % Eos % (Auto) (0.0-4.0) % Baso % (Auto) (0.0-2.0) % Neut # (Auto) (1.8-7.7) th/mm3 Lymph # (Auto) (1.0-4.8) th/mm3 [place] # (Auto) (0.0-0.9) th/mm3 Eos # (Auto) (0.0-0.4) th/mm3 Baso # (Auto) (0.0-0.2) th/mm3 WBC Differential Differential Comment PT (9.8-11.6) sec INR Ratio APTT (24.3-30.1) sec Sodium (136-145) meq/L Potassium (3.5-5.1) meq/L Chloride (98-107) meq/L Carbon Dioxide (21.0-32.0) meq/L Anion Gap (5-15) meq/L BUN (7-18) mg/dL Creatinine (0.50-1.00) mg/dL Estimated GFR (>89) mL/min Random Glucose (74-106) mg/dL Calcium (8.5-10.1) mg/dL Magnesium (1.5-2.5) mg/dL Total Bilirubin (0.2-1.0) mg/dL AST (15-37) U/L ALT (10-53) U/L Alkaline Phosphatase (45-117) U/L Total Creatine Kinase (26-192) U/L Troponin I (0.02-0.05) ng/mL B-Natriuretic Peptide 15 (0-100) pg/mL Total Protein (6.4-8.2) g/dL Albumin (3.4-5.0) g/dL Lipase (73-393) U/L Imaging Data Attestation: I personally reviewed and interpreted this imaging study as follows : Radiologist's impression: Chest X-Ray 03/19/18 21:51 CONCLUSION: Near density at the left base likely related to scarring or atelectasis. Discharge Plan Discharge Disposition Patient Disposition: 30 Still Patient Discharge Condition Condition: Stable Discharge Details Diagnosis: Chest pain Physicians Team ED Provider: Kate Arias Primary Care Provider: UNKNOWN, Rxs /Orders / Referrals /Forms Prescriptions: No Action No Known Home Medications RF: 0 Discharge Instructions Patient Printed Instructions: Chest Pain (ED) Status ED Status: In Room
[2018-03-20 01:43] LABS: Creatine Kinase 41 U/L (26-192)
[2018-03-20 06:15] LABS: Baso % (Auto) 0.4 % (0.0-2.0); Eos # (Auto) 0.1 th/mm3 (0.0-0.4); Eos % (Auto) 1.8 % (0.0-4.0); Hematocrit 31.8 % (35.0-46.0); Hemoglobin 10.9 gm/dL (11.6-15.3); Lymph % (Auto) 37.1 % (9.0-44.0); Mean Corpuscular HGB Conc 34.4 % (32.0-36.0); Mean Corpuscular Hemoglobin 29.3 pg (27.0-34.0); Mean Platelet Volume 10.3 fL (7.0-11.0); Mono # (Auto) 0.4 th/mm3 (0.0-0.9); Mono % (Auto) 8.1 % (0.0-8.0); Neut % (Auto) 52.6 % (16.0-70.0); Platelet Count 229 th/mm3 (150-450); Red Blood Count 3.74 mil/mm3 (4.00-5.30); Red Cell Distribution Width 13.4 % (11.6-17.2); White Blood Count 5.5 th/mm3 (4.0-11.0)
[2018-03-20 06:25] LABS: Calcium 8.4 mg/dL (8.5-10.1)
[2018-03-20 06:43] LABS: Creatine Kinase 38 U/L (26-192)
[2018-03-20 08:13] VITALS: TEMP 97.2; O2SAT 97
--- NOTE | 2018-03-20 08:31 | P.HP ---
History of Present Illness Primary Care Physician: UNKNOWN Chief Complaint: Chest pain History of Present Illness: 42-year-old female with known history of obesity, asthma who presented to the hospital because of chest discomfort. Patient states that she has been having intermittent chest discomfort over the last week or so. She states that last week she had an episode of palpitations and dull chest discomfort. She went to her prior medical doctor's office who told her that if she appears to experience a pain again that she should go to the hospital for evaluation. Patient states that she was sitting and watching TV last night approximately 8: 45 PM when she started developing a dull ache in the left anterior chest and then a sharp pain in the right chest with pain radiating down her left arm. She has some nausea but denied any vomiting, shortness of breath, dyspnea, diaphoresis, lightheadedness, dizziness. The patient waited approximately 10 minutes and then came to the emergency department. She is still experiencing the pain when she presented to the ER. Patient was given aspirin and nitroglycerin with resolution of her pain. Patient had negative workup and is recommended by the ER physician that the patient be observed in chest pain center for further evaluation and management. Patient has had a stress test done in 2008 which was unremarkable for any ischemia. Patient with minimal risk factors. Patient asymptomatic at time evaluating this morning. - Diagnosis (1) Chest pain Review of Systems All other systems reviewed negative except as stated in HPI Cardiovascular: Reports chest pain PMFSH - History History Provided By: Patient - Medical History Medical History: Medical History (Last Reviewed 03/20/18 @ 08:18 by ROSALIA Ortega) History of asthma - Surgical History Surgical History: Surgical History (Last Updated 03/20/18 @ 08:18 by ROSALIA Ortgea) History of hernia repair Hx of section Hx of cholecystectomy Hx of gastric bypass Hx of tonsillectomy - Family History Family History: Family History (Last Updated 03/20/18 @ 08:19 by ROSALIA Ortega) Mother History of COPD Father History of cirrhosis of liver - Tobacco History Second Hand Smoke Exposure: No Tobacco Use In Past 30 Days: Yes Smoking Status: Current every day smoker Tobacco Type: E-Cigarettes Packs Per Day: 1 Years Smoked: 31 - Alcohol History How Often Do You Have a Drink Containing Alcohol: Monthly or less - Substance Use History Substance History: No History of Abuse - Travel History Recent Travel in the [facility] Within the Last 8 Weeks: No Recent Travel Out of the Country Within the Last 8 Weeks: No - Immunization History Tetanus Immunization: Unsure Hx Influenza Vaccine This Season: No Medications and Allergies Active Medications: Active Medications Ondansetron HCl (Zofran Inj) 4 mg IV.PUSH Q6H PRN PRN Reason: NAUSEA OR VOMITING Last Admin: 03/20/18 02:20 Dose: 4 mg Sodium Chloride (Ns Flush) 2 ml IV.FLUSH UNSCH PRN PRN Reason: FLUSH AFTER USING IV ACCESS Allergies Allergy/AdvReac Type Severity Reaction Status Date / Time Fish Containing Products Allergy Severe Anaphylaxis Verified 03/19/18 21:52 shellfish derived Allergy Severe Anaphylaxis Verified 03/19/18 21:52 shrimp Allergy Severe Anaphylaxis Verified 03/19/18 21:52 penicillin G Allergy Unknown CHILDHOOD Verified 03/19/18 21:52 ALLERGY clindamycin AdvReac Severe RASH Verified 03/19/18 21:52 Home Medications Medication Instructions Recorded Confirmed Type No Known Home Medications 03/19/18 03/19/18 History Exam Vital signs: Vital Signs 03/19/18 21:51 03/19/18 21:52 03/19/18 21:58 Temperature 98.9 F Pulse Rate 72 72 72 Respiratory Rate 18 18 18 Blood Pressure 99/67 L 113/59 L 103/73 Pulse Oximetry 99 99 99 03/19/18 23:21 03/20/18 00:00 03/20/18 00:44 Temperature 97.0 F L Pulse Rate 77 77 69 Respiratory Rate 18 18 18 Blood Pressure 104/65 100/56 L 106/59 L Pulse Oximetry 99 96 99 03/20/18 02:05 03/20/18 08:00 Temperature 97.2 F L Pulse Rate 78 80 Respiratory Rate 19 Blood Pressure 100/51 L Pulse Oximetry 97 Intake & Output 03/19/18 03/20/18 03/20/18 18:59 06:59 18:59 Intake Total 200 / 200 0 / 0 Balance 200 / 200 0 / 0 Weight 113.7 kg Intake: Oral 200 / 200 0 / 0 Other: # Voids 2 Date of Last Bowel Movement 03/19/18 Weight On Admission 113.7 kg Narrative: GENERAL: Well-developed, morbidly obese with BMI 47, in no acute distress. alert and orientated HEENT: Head is normocephalic without any lesions or masses noted. Facial features are symmetric. Eyes: Pupils equal round reactive to light. Extraocular muscles are intact. Conjunctivae were clear. Oropharyngeal: Pharynx without any erythema edema. Tongue is midline without deviation. Buccal mucosa is moist without any masses or lesions NECK: Supple without any masses. Trachea midline no deviation. No JVD, no bruits are appreciated CARDIAC: Regular rhythm, regular rate. S1/S2 are heard. No murmurs gallops or rubs. LUNGS: Clear to auscultation bilaterally. No wheeze, rhonchi or rales. No use of accessory muscles on inspiration or expiration. ABDOMEN: Soft, nontender. Nondistended. Bowel sounds heard in all 4 quadrants. No organomegaly or masses. Negative rebound, negative guarding EXTREMITIES: No edema, pulses are equal bilaterally. No cyanosis or clubbing NEUROLOGY: Mood and affect appear appropriate. Cranial nerves II through XII grossly intact. Muscle strength 5/5 in upper and lower extremities bilaterally. Deep tendon reflexes are 2+ in upper and lower extremities bilaterally. Results - Labs CBC & Chem 7: 03/20/18 05:05 03/20/18 05:05 Labs: Laboratory Results - last 24 hr 03/19/18 03/19/18 03/19/18 22:15 22:15 22:15 CBC w Diff Auto diff final WBC 6.6 RBC 4.20 Hgb 11.9 Hct 35.2 MCV 83.8 MCH 28.3 MCHC 33.8 RDW 13.6 Plt Count 276 MPV 9.1 Neut % (Auto) 61.1 Lymph % (Auto) 26.4 George % (Auto) 10.6 H Eos % (Auto) 1.5 Baso % (Auto) 0.4 Neut # (Auto) 4.0 Lymph # (Auto) 1.8 George # (Auto) 0.7 Eos # (Auto) 0.1 Baso # (Auto) 0.0 WBC Differential . Differential Comment . PT 10.0 INR 1.0 APTT 26.6 Sodium 141 Potassium 4.0 Chloride 110 H Carbon Dioxide 25.6 Anion Gap 5 BUN 15 Creatinine 0.89 Estimated GFR 70 L Random Glucose 91 Calcium 8.4 L Magnesium 2.2 Total Bilirubin 0.1 L AST 15 ALT 39 Alkaline Phosphatase 143 H Total Creatine Kinase 52 Troponin I Less than 0.02 L B-Natriuretic Peptide Total Protein 7.0 Albumin 3.3 L Lipase 121 03/19/18 03/20/18 03/20/18 22:15 00:55 05:05 CBC w Diff WBC RBC Hgb Hct MCV MCH MCHC RDW Plt Count MPV Neut % (Auto) Lymph % (Auto) George % (Auto) Eos % (Auto) Baso % (Auto) Neut # (Auto) Lymph # (Auto) George # (Auto) Eos # (Auto) Baso # (Auto) WBC Differential Differential Comment PT INR APTT Sodium Potassium Chloride Carbon Dioxide Anion Gap BUN Creatinine Estimated GFR Random Glucose Calcium Magnesium Total Bilirubin AST ALT Alkaline Phosphatase Total Creatine Kinase 41 38 Troponin I Less than 0.02 L Less than 0.02 L B-Natriuretic Peptide 15 Total Protein Albumin Lipase 03/20/18 03/20/18 05:05 05:05 CBC w Diff Auto diff final WBC 5.5 RBC 3.74 L Hgb 10.9 L Hct 31.8 L MCV 85.0 MCH 29.3 MCHC 34.4 RDW 13.4 Plt Count 229 MPV 10.3 Neut % (Auto) 52.6 Lymph % (Auto) 37.1 George % (Auto) 8.1 H Eos % (Auto) 1.8 Baso % (Auto) 0.4 Neut # (Auto) 3.0 Lymph # (Auto) 2.0 George # (Auto) 0.4 Eos # (Auto) 0.1 Baso # (Auto) 0.0 WBC Differential . Differential Comment . PT INR APTT Sodium 144 Potassium 4.0 Chloride 111 H Carbon Dioxide 26.0 Anion Gap 7 BUN 14 Creatinine 0.73 Estimated GFR 87 L Random Glucose 90 Calcium 8.4 L Magnesium Total Bilirubin AST ALT Alkaline Phosphatase Total Creatine Kinase Troponin I B-Natriuretic Peptide Total Protein Albumin Lipase - Imaging Impressions Chest X-Ray 03/19/18 21:51 CONCLUSION: Near density at the left base likely related to scarring or atelectasis. Caprini VTE Risk Assessment Caprini VTE Risk Assessment: No/Low Risk (score <= 1) Caprini Risk Assessment Model: Point Value = 1 Point Value = 2 Point Value = 3 Point Value = 5 Age 41-60 Minor surgery BMI > 25 kg/m2 Swollen legs Varicose veins or History of unexplained or recurrent spontaneous Oral contraceptives or hormone replacement Sepsis (< 1 month) Serious lung disease, including pneumonia (< 1 month) Abnormal pulmonary function Acute myocardial infarction Congestive heart failure (< 1 month) History of inflammatory bowel disease Medical patient at bed rest Age 61-74 Arthroscopic surgery Major open surgery (> 45 min) Laparoscopic surgery (> 45 min) Malignancy Confined to bed (> 72 hours) Immobilizing plaster cast Central venous access Age >= 75 History of VTE Family history of VTE Factor V Leiden Prothrombin [id number] Lupus anticoagulant Anticardiolipin antibodies Elevated serum homocysteine Heparin-induced thrombocytopenia Other congenital or acquired thrombophilia Stroke (< 1 month) Elective arthroplasty Hip, pelvis, or leg fracture Acute spinal cord injury (< 1 month) Prophylaxis Regimen: Total Risk Factor Score Risk Level Prophylaxis Regimen 0-1 Low Early ambulation 2 Moderate Order ONE of the following: *Sequential Compression Device (SCD) *Heparin 5000 units SQ BID 3-4 Higher Order ONE of the following medications: *Heparin 5000 units SQ TID *Enoxaparin/Lovenox 40 mg SQ daily (WT < 150 kg, CrCl > 30 mL/min) *Enoxaparin/Lovenox 30 mg SQ daily (WT < 150 kg, CrCl > 10-29 mL/min) *Enoxaparin/Lovenox 30 mg SQ BID (WT < 150 kg, CrCl > 30 mL/min) AND/OR *Sequential Compression Device (SCD) 5 or more Highest Order ONE of the following medications: *Heparin 5000 units SQ TID (Preferred with Epidurals) *Enoxaparin/Lovenox 40 mg SQ daily (WT < 150 kg, CrCl > 30 mL/min) *Enoxaparin/Lovenox 30 mg SQ daily (WT < 150 kg, CrCl > 10-29 mL/min) *Enoxaparin/Lovenox 30 mg SQ BID (WT < 150 kg, CrCl > 30 mL/min) AND *Sequential Compression Device (SCD) Assessment and Plan - Assessment (1) Chest pain Code(s): R07.9 - Chest pain, unspecified Status: Acute - Plan Chest pain, atypical -Patient with minimal risk factors to include tobacco use, body habitus -Patient has been ruled out for acute coronary event with serial cardiac enzymes that have remained negative -Serial EKGs indicated sinus rhythm without any changes -Patient is on telemetry, this was reviewed without any life-threatening arrhythmia -Myocardial perfusion study was performed and indicated no signs of ischemia, low risk -Continue aspirin, nitroglycerin as needed DVT prevention -Low risk, early ambulation Discussed Condition With: Patient, nursing staff Discharge Planning: Discharge home in stable condition Activity: Ad rani. Diet: Healthy heart diet Medication per medication reconciliation Follow-up with primary medical doctor in 1 week (1) Chest pain Qualifiers: Chest pain type: unspecified Qualified Code(s): R07.9 - Chest pain, unspecified
[2018-03-20] MEDS ORDERED: Regadenoson Inj 0.4 MG/5 ML Syringe IV.PUSH ONE (10:10)
[2018-03-20 11:17] VITALS: BP 89/53; PULSE 74
--- NOTE | 2018-03-20 11:26 | NM ---
EXAM DATE: 03/20/2018 11:16 AM EDT AGE/SEX: 42 years / Female INDICATIONS:Angina. . Substernal chest pain. CLINICAL DATA: This is the patient's initial encounter. Patient reports that signs and symptoms have been present for 1 day and indicates a pain score of 4/10. MEDICAL/SURGICAL HISTORY: Asthma. Cholecystectomy. section. Gastric bypass. COMPARISON: No prior exams available for comparison. DOSE: 11 mCi Tc 99m Myoview at rest 35 mCi [id number] at stress 0.4 mg Lexiscan STRESS SYMPTOMS: Dyspnea. EJECTION FRACTION: >70 % TECHNIQUE: The patient underwent pharmacologic stress with infusion of prescribed dose. Continuous ECG tracing was monitored during stress. Gated SPECT imaging was performed after stress and conventi onal SPECT imaging was performed at rest. The examination was performed on a SPECT/CT scanner, both attenuation and non-corrected datasets were reviewed. FINDINGS: Distribution: The maximum perfused segment at stress is in the septal wall. Perfusion Study: The pattern of perfusion at stress is within normal limits. Gated Study: There are intact wall motion and wall thickening without hypokinetic or dyskinetic segm ents. The ejection fraction is calculated at >70%. RISK CATEGORY: Low (<1% Annual Motality Rate) CONCLUSION: Unremarkable myocardial perfusion. Electronically signed by: Lew Griffith MD 03/20/2018 11:25 AM EDT
[2018-03-20] MEDS ORDERED: Acetaminophen 325 MG Tablet PO ONE (11:37)
[2018-03-20 13:52] VITALS: RESP 18
--- NOTE | 2018-03-20 16:28 | ECG ---
Date Performed: 03/19/2018 Time Performed: 21:28:31 PTAGE: 42 years EKG: Sinus rhythm POSSIBLE LEFT ATRIAL ENLARGEMENT LOW QRS VOLTAGE IN PRECORDIAL LEADS Since the previous tracing, no significant change noted BORDERLINE ECG PREVIOUS TRACING : 10/20/2017 18.06 DOCTOR: Torito Wang Interpretating Date/Time 03/20/2018 16:22:58
--- NOTE | 2018-03-20 16:38 | TR ---
Date Performed: 03/20/2018 Time Performed: 10:40:33 DOCTOR: Alisson Orourke DRUG LIST: CLINICAL HISTORY: CHEST PAIN REASON FOR TEST: Chest pain REASON FOR ENDING: OBSERVATION: CONCLUSION: Lexiscan stress test was performed under standard four minute protocol. Radionuclid e was injected one minute prior to ending the test. No electrocardiographic abormalities were present to suggest ischemia. Nuclear imaging and interpretation are pending. COMMENTS: No electrocardiographic abormalities were present to suggest ischemia. Nuclear imagin g and interpretation are pending.
== END 2018-03-20 13:23 | disposition home or self-care (01) ==
LOC: PHEDA 21:23 → PHED 21:23 → PH3 03-20 01:32
PROVIDERS: ADMIT Hospitalist; ATTEND Hospitalist